=== PATIENT | female | born 1980 | race Caucasian/White ===

== ENCOUNTER 2018-10-16 10:30 | Inpatient (IN) | payer SELFPAY ==
[2018-10-16] MEDS ORDERED: methylPREDNISolone Sod Succ/PF 125 MG/2 ML VIAL ONE (10:50)
--- NOTE | 2018-10-16 12:33 | ULT ---
PELVIC ULTRASOUND: Transabdominal ultrasound pelvis performed. INDICATION: Pelvic abscess. COMPARISON: Correlation is made to CT performed earlier this morning. FINDINGS: Uterus has a normal appearance. Echogenicity in the endometrial cavity is consistent with an IUD whi ch was seen on CT. Right ovary appears unremarkable. Color Doppler with spectral analysis shows flow to the right ovary . There is a complex heterogeneous mass in the left adnexa which is not well delineated by ultrasound b ut measures up to 9 cm. The left ovary is not definitely identified. These findings correspond to t he CT which showed a heterogeneous mass which would be consistent with pelvic abscess in the left adn exa. IMPRESSION: A complex heterogeneous mass density in the left adnexa. POS: OFF
[2018-10-16] MEDS ORDERED: Fentanyl 100 MCG/2 ML VIAL SLOW IVP SCH (13:00)
[2018-10-16] MEDS ORDERED: Sodium Chloride 0.9% 100 ML ONE (13:03)
[2018-10-16] MEDS ORDERED: Fentanyl 100 MCG/2 ML VIAL ONE (13:03)
[2018-10-16] MEDS ORDERED: Piperacillin/Tazobactam 3.375 GM VIAL ONE (13:03)
--- NOTE | 2018-10-16 13:07 | RAD ---
EXAM: Two views chest PROVIDED CLINICAL HISTORY: Shortness of breath. Nausea, vomiting, and diarrhea and left lower quadrant abdominal pain. COMPARISON: None FINDINGS: Cardiac silhouette and pulmonary vasculature are within normal limits. There are increased interstit ial and alveolar opacities seen in the perihilar locations bilaterally which may be related to pulmonary edema or possibly infectious process. No pleural effusion is seen. The osseous structures h ave a normal appearance. IMPRESSION: Increased perihilar interstitial and alveolar opacities which may be related to asymmetric pulmonary edema. Infectious process is also a differential possibility. Follow-up evaluation is recommended to ensure resolution.
[2018-10-16 14:39] LABS: HBCM Index 0.06 S/CO (0-0.79); HBSAg Index 0.23 S/CO (0-0.99); HIV (1/2) Antibody/Antigen Non-Reactive (NonReactive); HIV 1/2 INDEX 0.08 S/CO (<1.00); Hep A IgM AB Non-Reactive (NonReactive); Hep B Surf Ag Non-Reactive S/CO (NonReactive); Hep C IgG Ab Non-Reactive (NonReactive); Hep C Index 0.07 S/CO (0-0.79); Hepatitis B Core IgM Abs Non-Reactive (NonReactive)
[2018-10-16 14:56] VITALS: BMI 25.2
[2018-10-16 15:41] LABS: Amphetamine Not Detected (NotDetected); Barbiturates Screen Not Detected (NotDetected); Benzodiazepine Screen Not Detected (NotDetected); Cocaine Metabolite Screen Not Detected (NotDetected); Medtox Control Line Valid? VALID (VALID); Medtox Reader # READER 1; Methadone Not Detected (NotDetected); Methamphetamine Not Detected (NotDetected); Opiate Screen Not Detected (NotDetected); Oxycodone Screen Not Detected (NotDetected); Phencyclidine (PCP) Not Detected (NotDetected); THC/Cannabinoid Screen Detected (NotDetected); Tricyclic Screen Not Detected (NotDetected)
[2018-10-16] MEDS: NS 0.9% w/ 40 MEQ KCL 1,000 ML IV SCH (16:50)
[2018-10-16] MEDS: Piperacillin/Tazobactam 3.375 GM in Sodium Chloride 0.9% 100 ML IVPB SCH (19:07)
[2018-10-16] MEDS: Potassium Chloride 20 MEQ TAB PO SCH (19:07)
[2018-10-16] MEDS: Fentanyl 100 MCG/2 ML VIAL SLOW IVP PRN ×2 (19:13→22:30)
--- NOTE | 2018-10-16 19:24 | HP ---
CHIEF COMPLAINT: Pelvic pain. HISTORY OF PRESENT ILLNESS: The patient is a 38-year-old female, transferred from the [facility] to [facility] in [place], [place] with a 2-week history of pelvic pain and 1-week history of fever. The patient had a CT scan performed at the outside facility describing several abscesses in the pelvis and transferred here for evaluation. ER physician downstairs performed a pelvic ultrasound demonstrating a large heterogeneous mass involving the left adnexa and measuring 9 x 5 cm and TIME CHECKER consulted for evaluation. At the time of my evaluation, the patient was fairly comfortable, but had noticed that the pain was coming back. The patient had been given 50 mcg of fentanyl at the outside facility. She reports that she has been having pelvic pain now for about 2 weeks that she has been having fever off and on for about the last week. Her last temperature at 101 or above was on Sunday. She has been having temperatures intermittently since then at about 100 and 99. The patient has not had any antibiotics outside her ER evaluation. The reports a long history of GC, chlamydia more than 14 years ago, but nothing since then. She also reports she has not seen a physician in about that long. She denies any other recent illnesses, fever, or fall. She denies chest pain. She does report she has had some shortness of breath and weakness over the last couple of days. She also reports diarrhea yesterday after taking dulcolax suppository and constipation prior to that. She also reports about 2 weeks ago she was diagnosed with gastroenteritis at a local clinic. The patient reports the shortness of breath for some time. Any exertion or running short distances get her very winded. She does report she is able to ambulate through the mall without difficulty. MEDICAL HISTORY: Negative. ALLERGIES: NO KNOWN DRUG ALLERGIES. MEDICATIONS: None. She did receive a dose of Zofran 8 mg, fentanyl 50 mcg, Flagyl 500 mg with the patient reported bad reaction with wheezing and shortness of breath, cefepime 2 g, Toradol 30 mg, and 1 L at the outside facility. SOCIAL HISTORY: The patient denies any drug, alcohol, or tobacco use within the last year. However, in looking at her most recent evaluation at the outside facility, it is reported that she smokes half pack per day. It is also reported by her mother in a separate setting that Ms. Polina weighs daily. PHYSICAL EXAMINATION: VITAL SIGNS: Blood pressure is 100/80, pulse is in the one teens to 120s. She is on 3 L of nasal cannula at my initial visit, saturating 99% on room air. GENERAL: She does not appear to be in any acute distress. She is alert, oriented, cooperative, and pleasant to interact with. She has very poor dentition. HEENT: Head is normocephalic and atraumatic. LUNGS: Clear to auscultation bilaterally. No wheezes, rales, or rhonchi. HEART: A little bit tachycardic, but otherwise normal rhythm. ABDOMEN: Soft. She does have some significant pelvic tenderness. EXTREMITIES: Nontender, nonedematous. PELVIC: Vulva is without masses, lesions, or erythema. Vagina is moist. There is no discharge visible in the cervix. She does have IUD strings visible, which she says has been present for about 15 years. Cervix appears normal with no lesions. The cervical mucus is clear. No pus or purulence visible from the os. With the ring forceps, the IUD was removed without difficulty, which was a ParaGard IUD at the time of inspection. Again, no pus or bleeding visible. On pelvic exam, there was no cervical motion tenderness. The right adnexal region was a little tender, but the patient did not have much discomfort. Posterior to the uterus, where this mass is visible on imaging, is extremely tender as is the left adnexal. LABORATORY DATA: White count 8.7, hemoglobin 11, hematocrit 34.8, platelets 320,000, and neutrophil percentage 85.6. Sodium 135, potassium 2.8, chloride 103, BUN 5, creatinine 0.83, glucose 118, AST of 65, ALT of 90. 2+ proteinuria on her UA with 1+ bacteria, small leukocyte esterase. IMAGING: At the time of exam, the patient required a full-face mask at 10 L to maintain O2 saturation. Chest x-ray shows increased perihilar, interstitial, and alveolar opacities, which may be related to asymmetric pulmonary edema. Infectious process is also differential possibility. Pelvic ultrasound shows a complex heterogeneous mass density in the left adnexa. CT scan shows two large rounded space-occupying structures in the left adnexal region, and posterior to the uterus, it appears to have central fluid present. Abscesses of pelvic origin are suspected. A pelvic ultrasound as the next step to better characterize them is suggested. ASSESSMENT AND PLAN: The patient is a 38-year-old female with a 2-week history of pelvic pain and a week history of fever. Imaging has these pelvic masses that appear to be abscesses. Pelvic exam confirms very significant tenderness in this region. Based on the patient's history, it is possible the patient's infection is being beginning to be contained by the body as the fever intensity and frequency seem to be diminishing per patient report. White count is not significantly elevated at this time, but does have a left shift. Of note, the patient does have hypokalemia with a potassium of 2.8 and needs replacement and some elevated LFTs. The patient is being admitted to observation for continued IV antibiotics, and I have also consulted the hospitalist team to evaluate her lung situation as her shortness of breath is significant requiring oxygen. The patient does have a longstanding history of tobacco use, though she reports has been free of smoking for the last year. GC, chlamydia and VP3 have also been collected. Given the patient's medical evaluation over the next 24 hours, we can better disposition the patient. She may have acute or chronic lung problems and an abscess that may or may not respond to IV antibiotics, though does appear to be perhaps maybe resolving on its own. The patient will be placed on Zosyn 3.375 g per q.6 hours. Job ID: [id number]
--- NOTE | 2018-10-16 20:25 | PDOC.EVN ---
Event Note - Event Note Event Note: 10/16/181999 Spoke with Dr Zepeda this evening. He expressed concern that Ms Fish may be developing ARDS and had been transferred to ICU tonight. I went to seen pt this evening. She reports feeling better at the moment. Vitals virtually unchanged from this morning. BP 93/59 pulse 92 R 18 temp 98.4 99% on 2L NC PT and I have discussed surgery for exploration, I&D and washout if she starts showing worsening signs/symptoms. PT has been thoroughly described the risks and benefits of DX laparoscopy vs laparotomy and procedures as indicated. She has provided written informed consent . Will check on her in a couple hours. hiv and hepatitis panel are neg vp3 neg gc/ct pending drug screen positive for cannibanoids 10/17/18 0027 pt resting right lateral at 30%incline. no complaints vitals 92/62 110 15 98% 2l nc nad
--- NOTE | 2018-10-17 00:09 | CON ---
DATE OF CONSULTATION: PRIMARY CARE PHYSICIAN: The patient does not have a primary care physician. CHIEF COMPLAINT: Left lower abdominal pain. HISTORY OF PRESENT ILLNESS: Ms. Fish is a 38-year-old female, who has no significant prior past medical history, who says that she was having abdominal pain starting about 2 weeks ago. She says it was on the left side. It was radiating around to the back. She says that the pain got so bad that she could not handle it. She also noted that she was having some dyspnea on exertion off and on during this time, but no cough or congestion. She does admit to having subjective fever and chills and some nausea for the past 2 days as well, but due to the worsening pain, she decided to come to the emergency room for evaluation. There it was noted that she had an IUD in place. She admits that the IUD had been in for about 17 years. She was sent over to our facility for evaluation. She says that while she was in the emergency room, she became more short of breath to the point where she was short of breath even at rest. When she was sent over to our facility, the OB hospitalist was called. He has removed the IUD and she is being admitted for further evaluation. Also during the evaluation, she was found to be hypoxic and she has bilateral pulmonary infiltrates and the hospitalist service has been consulted for further evaluation. REVIEW OF SYSTEMS: All systems were reviewed and are negative except for that mentioned in the history of present illness. PAST MEDICAL HISTORY: Negative. PAST SURGICAL HISTORY: Negative. ALLERGIES: NO KNOWN DRUG ALLERGIES. SOCIAL HISTORY: She told me that she does not smoke. She told the OB hospitalist that she quit about a year ago and he told me that the patient's mother brought him outside the room and says that she uses the E-cigarettes and participates in vaping. The patient told me she does not drink. She is . FAMILY HISTORY: Significant for cancer. CURRENT MEDICATIONS: None. PHYSICAL EXAMINATION: GENERAL: She is alert and oriented. She appears to be in no acute distress. However, she is chronically ill in appearance. VITAL SIGNS: Blood pressure is 97/66, heart rate 107, respiratory rate of 18, temperature is 97.9 and O2 saturation is 2 L on nasal cannula. HEENT: Pupils are equal, round, and reactive. Extraocular muscles are intact. Her sclerae are anicteric. Throat, there is no erythema, no exudates. NECK: No adenopathy. No bruits. LUNGS: She has rales all the way through the entire lung martinez in both lobes. CARDIOVASCULAR: She has a normal S1, S2. There is no S3 or S4. However, her heart rate is tachycardic. ABDOMEN: Soft, it is nontender and nondistended. Positive for bowel sounds. There is no rebound or guarding. No organomegaly. EXTREMITIES: There is no clubbing, cyanosis. No edema. NEUROLOGIC: The exam is nonfocal. SKIN AND INTEGUMENT: No skin changes, no rash. LABORATORY DATA: White blood cell count is 8.7, hemoglobin 11.0, hematocrit is 34.8, and platelet count is 320. Sodium 135, potassium 2.8, chloride is 103, CO2 is 19, BUN of 5, creatinine 0.83, glucose is 118. Urine drug screen was positive for cannabinoids. ASSESSMENT: This is a 38-year-old female, who is being admitted for possible pelvic abscess, likely as a result of a retained intrauterine device. She is being admitted by the OB service and has already been started on IV antibiotics for this. 1. Acute respiratory failure. She has bilateral pulmonary infiltrates, which is concerning given that she has a fairly high degree of hypoxemia. This could be related to the current infection in the form of a developing acute respiratory distress syndrome. However, her white blood cell count is normal and she does not have any other symptoms of severe sepsis. She also per family history uses E-cigarettes and her urine drug screen is positive for cannabinoids. Therefore there is some suspicion that she could be vaping and has developed a syndrome related to this. For this reason, as a precaution, she is going to be moved to the ICU. I have already spoken to the marketing financial analyst on-call, who has requested this and he plans to see her later today. We will go ahead and continue the current antibiotics and likely will need to add steroids. 2. Hypokalemia. We will go ahead and replace. 3. Possible nutritional deficiency given the low potassium. She may have other nutritional deficiencies and for this reason, we will go ahead and start her on thiamine and folic acid and she will be placed on deep venous thrombosis as well as gastrointestinal prophylaxis. Job ID: [id number]
[2018-10-17] MEDS: Piperacillin/Tazobactam 3.375 GM in Sodium Chloride 0.9% 100 ML IVPB SCH ×5 (00:13→23:46)
[2018-10-17] MEDS: Morphine 2 MG/ML SYRINGE SLOW IVP PRN ×4 (01:25→23:42)
--- NOTE | 2018-10-17 01:50 | CON ---
DATE OF CONSULTATION: HISTORY OF PRESENT ILLNESS: Ms. Fish is a very pleasant 38-year-old female. After her last child 14 years ago, 2 days later, she had a 10-year IUD put in. She says she just forgot about it and has been so busy at work. She had not felt like she needed to do anything with it. About 2 weeks ago, she started having left flank pain. It started migrating to her left lower quadrant. She thought this was her periods starting, but after she had her menstrual period, the pain did not get better and actually started getting worse every day. The pain was unbearable this morning, so she went to the [facility]. Abdomen and pelvis CT showed a large left adnexal abscess extending adjacent to and behind the uterus. She was tachycardic when she presented reviewing the [facility] records. She said she presented hypotensive. The lowest blood pressure I see was one in the 90s. She received IV fluids and her tachycardia and hypotension resolved. She was transferred here. I am told her IUD was removed. Antibiotics have been started. Because of an abnormal chest x-ray and complaints of shortness of breath and hypoxemia, she was moved to the critical care unit. I was consulted to assist in management. PAST MEDICAL HISTORY: Remarkable for restless legs. SOCIAL HISTORY: She is a former tobacco user. She vapes, but does not vape nicotine. She does not vape THC. She has found a flavor that she buys from one of the stores that sell vape products. She says she does that just to keeps her hands busy so she does not start smoking again. She is not a daily drinker. She does not use drugs. REVIEW OF SYSTEMS: Ten-point of review of systems is otherwise negative. FAMILY HISTORY: Negative for lung disease. PHYSICAL EXAMINATION: GENERAL: She is in no distress surprisingly. I was expecting tachypnea after reviewing her radiographs. HEENT: She is afebrile. Heart rates in the 90s now. She is in sinus rhythm. Oximetry is 100% on 2 L. blood pressure is currently 116/80. HEENT: Pupils are equal. Sclerae are anicteric. She has poor dentition. NECK: Supple. No lymphadenopathy. LUNGS: Clear. HEART: Regular rhythm. S1 and S2 are normal. ABDOMEN: Soft and minimally tender in left lower quadrant. EXTREMITIES: Without clubbing, cyanosis, or edema. LABORATORY DATA: White count 8.7, hemoglobin 11.0, platelets 320. Sodium 135, potassium 2.8, chloride 103, bicarb 19, BUN 5, creatinine 0.83, anion gap is 13 , AST 65, ALT is 90, alkaline phosphatase 190, protein is 9.0, globulin is 5.1. IMPRESSION: Pelvic abscess. It is unclear to me if this is related to her IUD , but it seems feasible. Not a typical position for perforated diverticulitis. She has had no history of bladder trauma or uterine trauma that would suggest that she had perforated. She certainly does not have peritoneal findings at this time. Her chest radiograph shows diffuse infiltrates, which I am fairly certain is medical field representative of adult respiratory distress syndrome. She has not been vaping any products that would lead to an abnormal chest radiograph. She says she has not been vaping for the last 2 weeks and she started feeling bad. I suspect her elevated liver enzymes are an inflammatory reaction to her early clinical sepsis. Hopefully, we will see gradual improvement. I have discussed the above with the furniture painter marine extension agent with plans to examine her serially this evening. The radiologist do not feel CT guided tube placement is feasible. Hopefully, she does not clinically deteriorate and that antimicrobial therapy will take care of this, but this is, by my review of the CT, a fairly impressive abscess behind and adjacent to her uterus. CRITICAL CARE TIME: 30 minutes. Job ID: [id number] MTDD
[2018-10-17 04:51] LABS: #Lymphocytes 0.8 thou/uL (1.20-3.40); #Monocytes 0.3 thou/uL (0.11-0.59); #Neutrophils 10.6 thou/uL (1.40-6.50); %Basophils 0.2 % (0.0-1.0); %Lymphocytes 7.1 % (21.0-51.0); %Monocytes 2.4 % (0.0-10.0); %Neutrophils 90.3 % (42.0-75.0); Hemoglobin 9.9 g/dL (12.0-16.0); Mean Corpuscular HGB CONC 33.5 g/dL (32.0-36.0); Mean Corpuscular Volume 86.5 fL (78.0-98.0); Platelet Count 236 thou/uL (130-400); RBC Distribution Width 13.5 % (11.5-14.5); Red Blood Cell (RBC) Count 3.42 mill/uL (4.20-5.40); White Blood Cell (WBC) Count 11.8 thou/uL (4.8-10.8)
[2018-10-17] MEDS: NS 0.9% w/ 40 MEQ KCL 1,000 ML IV SCH ×2 (05:08→12:55)
[2018-10-17 05:09] LABS: ALT (SGPT) 55 U/L (8-55); AST (SGOT) 34 U/L (5-34); Albumin 3.2 g/dL (3.5-5.0); Alkaline Phosphatase 140 U/L (40-150); Anion Gap 10 mmol/L (10-20); BUN (Urea Nitrogen) 6 mg/dL (7.0-18.7); Bilirubin, Total 0.4 mg/dL (0.2-1.2); Calc. Creatinine Clearance 90 mL/min (70-130); Calcium 8.2 mg/dL (7.8-10.44); Carbon Dioxide 17 mmol/L (22-29); Chloride 115 mmol/L (98-107); Estimated GFR-MDRD 85; Globulin 3.8 g/dL (2.4-3.5); Glucose 119 mg/dL (70-105); Potassium 4.4 mmol/L (3.5-5.1); Sodium 138 mmol/L (136-145)
[2018-10-17] MEDS: Morphine 4 MG/ML VIAL SLOW IVP PRN ×2 (08:49→12:20)
[2018-10-17] MEDS: Enoxaparin Sodium 40 MG/0.4 ML SYRINGE SC SCH (08:53)
[2018-10-17] MEDS: Potassium Chloride 20 MEQ TAB PO SCH ×2 (08:55→16:22)
--- NOTE | 2018-10-17 09:41 | PRG ---
DATE OF SERVICE: 10/17/2018 SUBJECTIVE: The patient is a 38-year-old female, admitted for pelvic mass/abscesses and placed on Zosyn. The patient was also noted to be having some hypoxia requiring oxygen supplementation and hospitalist was consulted. Yesterday, the patient was placed in the ICU with concerns that she was developing ARDS. Close observation overnight has demonstrated a stable patient still requiring 2 L of nasal cannula oxygen, but has been stable for the last 24 hours. The patient reports this morning that she is feeling better. Her pain is improving with IV antibiotics and time. She also reports that she feels a little short of breath, but is able to lie supine, which is improvement from yesterday. OBJECTIVE: VITAL SIGNS: Vital signs have been reviewed and are unchanged overnight. She was saturating about 90% on 2 L nasal cannula while asleep when I went into the room, which came up to 97% to 98% once she was woken. Vital signs otherwise remain intact with blood pressure 90s/60s, heart rate in the 100 to one teens, and respiratory rate at 15 to 18. GENERAL: She appears to be in no acute distress. She is alert, oriented, cooperative, and pleasant to interact with. LUNG: The patient has crackles bilaterally. ABDOMEN: Less tender to palpation than yesterday. LABORATORY DATA: Labs repeated this morning shows resolution of her hypokalemia with potassium of 4.4 and sodium of 138. Her elevated LFTs have also resolved spontaneously with AST of 34 and ALT of 55. White count is 11.8, hemoglobin 9.9, hematocrit 29.6, platelets of 236,000, and neutrophils are 90%. ASSESSMENT AND PLAN: The patient is a 38-year-old female with a pelvic mass that likely represents infectious process and abscess. The patient has remained afebrile since her admission and seems to be clinically improving from a pain standpoint. The patient's lungs are still requiring oxygen have been stable. We will defer her pulmonary management to the dry cleaning supervisor. We appreciate his help and we will continue in-house IV antibiotics and observation. Job ID: [id number]
--- NOTE | 2018-10-17 14:32 | PRG ---
DATE OF SERVICE: 10/17/2018 SUBJECTIVE: Noemi Fish does not appear any worse today. OBJECTIVE: VITAL SIGNS: Heart rate is running around 100 to 108, blood pressure is running 96 to 104 systolic, and respiratory rates in the teens. LUNGS: Clear. HEART: Regular rhythm. ABDOMEN: Soft. LABORATORY DATA: Sodium is 138, potassium 4.4, chloride 115, bicarb 17, BUN 6, and creatinine 0.77. IMPRESSION: 1. Pelvic abscess, stable on antimicrobial therapy. This may require intervention at some point. 2. Hyperchloremic acidosis that is iatrogenic and nonclinical issue at this point. PLAN: We will take her off normal saline, switch her to half-normal saline which should gradually correct. We will continue to follow. Job ID: [id number]
[2018-10-17] MEDS: Sodium Chloride 0.45% 1,000 ML IV SCH (16:07)
--- NOTE | 2018-10-17 16:59 | PDOC.HOSPP ---
- Subjective Encounter Date: 10/17/18 Encounter Time: 10:00 Subjective: Ms. iFsh was seen today in follow-up. She says she is less short of breath today, especially when she lay back. She continues to note some discomfort in her back when she takes in a deep breath. - Objective Vital Signs & Weight: Vital Signs (12 hours) Temp Pulse Ox 10/17/18 15:43 97.1 F L 10/17/18 11:00 97.7 F 10/17/18 08:00 99 10/17/18 07:00 97.9 F Weight Admit Weight 125 lb Weight 125 lb Most Recent Monitor Data Heart Rate from ECG 114 NIBP 89/61 NIBP BP-Mean 70 Respiration from ECG 22 SpO2 96 I&O: 10/16/18 10/17/18 10/18/18 06:59 06:59 06:59 Intake Total 1403 1042 Output Total 550 650 Balance 853 392 Result Diagrams: 10/17/18 04:32 10/17/18 04:32 Hospitalist ROS - Medication Medications: Active Medications Generic Name Dose Route Start Last Admin Trade Name Freq PRN Reason Stop Dose Admin Enoxaparin Sodium 40 mg 10/17/18 09:00 10/17/18 08:53 Lovenox SC 40 mg 0900 SUN Administration Fentanyl 50 mcg 10/16/18 19:06 10/16/18 22:30 Sublimaze SLOW IVP 50 mcg Q2H PRN Administration Pain Piperacillin Sod/Tazobactam 100 mls @ 200 mls/hr 10/16/18 18:00 10/17/18 12: 29 Sod 3.375 gm/ Sodium Chloride IVPB 100 mls Q6HR SUN Administration Sodium Chloride 1,000 mls @ 75 mls/hr 10/17/18 14:00 10/17/18 16:07 1/2 Normal Saline IV 1,000 mls .[id number] SUN Administration Morphine Sulfate 2 mg 10/16/18 19:29 10/17/18 05:35 Morphine SLOW IVP 2 mg Q4H PRN Administration Moderate Pain (4-6) Morphine Sulfate 4 mg 10/16/18 19:29 10/17/18 12:20 Morphine SLOW IVP 4 mg Q4H PRN Administration Moderate to Severe Pain (6-10) Potassium Chloride 40 meq 10/16/18 17:00 10/17/18 16:22 K-Dur PO Not Given BID-WM SUN - Exam Eye: PERRL, anicteric sclera Heart: RRR, no murmur, no gallops, no rubs, normal peripheral pulses Respiratory: no ronchi, normal chest expansion, rales (fine rales bilaterally, improved from yesterday) Gastrointestinal: soft, non-tender, non-distended, normal bowel sounds, no palpable masses, no hepatomegaly Extremities: no cyanosis, no clubbing, no edema Psychiatric: normal affect, A&O x 3 Hosp A/P (1) Acute respiratory failure with hypoxia Code(s): J96.01 - ACUTE RESPIRATORY FAILURE WITH HYPOXIA Status: Acute (2) Pelvic abscess Code(s): URY1986 - Status: Acute (3) Normocytic anemia Code(s): D64.9 - ANEMIA, UNSPECIFIED Status: Acute - Plan * Acute hypoxic respiratory failure- improved * Pelvic abscess- will defer OB- Hospitalist for management * Anemia- will check iron studies * Agree with transfer out of the ICU
[2018-10-17] MEDS: Fentanyl 100 MCG/2 ML VIAL SLOW IVP PRN (18:14)
[2018-10-17] MEDS: Ondansetron PF 4 MG/2 ML Vial IVP PRN (18:39)
[2018-10-17] MEDS ORDERED: Ketorolac Tromethamine 30 MG/ML VIAL IVP SCH (19:15)
--- NOTE | 2018-10-17 23:32 | PDOC.EVN ---
Event Note - Event Note Event Note: Patient with more pain this evening. VSS. Discussed proceeding with laparoscopic drainage of abscess and patient agrees to proceed. Surgery scheduled for 9-10am. Consents previously signed with Dr. Palacios. All questions answered. NPO after midnight.
[2018-10-18] MEDS: Morphine 2 MG/ML SYRINGE SLOW IVP PRN ×2 (05:14→12:36)
[2018-10-18] MEDS: Sodium Chloride 0.45% 1,000 ML IV SCH ×2 (05:17→12:32)
[2018-10-18] MEDS: Piperacillin/Tazobactam 3.375 GM in Sodium Chloride 0.9% 100 ML IVPB SCH ×4 (05:19→23:44)
[2018-10-18 06:27] LABS: Iron 12 ug/dL (50-170); Iron Binding Capacity, Total 184 mcg/dL (265-497)
[2018-10-18] MEDS: Fentanyl 100 MCG/2 ML VIAL SLOW IVP PRN ×2 (07:46→14:57)
--- NOTE | 2018-10-18 08:17 | PRG ---
DATE OF SERVICE: 10/18/2018 SUBJECTIVE: The patient is having more pain this morning and seems very anxious. She denies any other complaints at this time, but is very concerned about when her procedure will take place because she is very thirsty. OBJECTIVE: VITAL SIGNS: Temperature 98.4, blood pressure 96/70, pulse 95, respiratory rate 24, and O2 saturation 100% on 2 L nasal cannula. GENERAL: Awake, alert, in no acute distress, but appears anxious. ASSESSMENT AND PLAN: A 38-year-old with a large pelvic abscess, scheduled for laparoscopy this morning with Dr. Palacios. The patient was consented upon admission and agrees to proceed with the surgery. All questions were answered and she has been n.p.o. since midnight. The nurse is here to take her down to preop. Job ID: [id number]
[2018-10-18] MEDS: Potassium Chloride 20 MEQ TAB PO SCH (08:36)
[2018-10-18] MEDS: Enoxaparin Sodium 40 MG/0.4 ML SYRINGE SC SCH (08:37)
[2018-10-18] MEDS ORDERED: Fentanyl 100 MCG/2 ML VIAL ONE ×3 (08:56→11:46)
[2018-10-18] MEDS ORDERED: Bupivacaine HCl 0.5%/Epinephrine 1:200,000/PF 30 ml Vial ONE (09:00)
[2018-10-18] MEDS ORDERED: Piperacillin/Tazobactam 3.375 GM VIAL ONE (09:19)
[2018-10-18] MEDS ORDERED: Sodium Chloride 0.9% 100 ML ONE (09:19)
[2018-10-18] MEDS ORDERED: Albumin 5% 500 ML ONE (10:01)
[2018-10-18] MEDS ORDERED: Morphine 4 MG/ML VIAL ONE (11:14)
[2018-10-18] MEDS ORDERED: Silver Nitrate Application 1 EACH ONE (11:28)
[2018-10-18] MEDS ORDERED: Promethazine HCl 25 MG/ML VIAL ONE (11:55)
[2018-10-18] MEDS ORDERED: Rocuronium Bromide 10 MG/ML (10ML VIAL) ONE (14:35)
[2018-10-18] MEDS ORDERED: PROPOFOL 200 MG/20 ML VIAL ONE (14:35)
[2018-10-18] MEDS ORDERED: Succinylcholine Chloride 20 MG/ML 10 ml SYRINGE FS ONE (14:35)
[2018-10-18] MEDS ORDERED: Glycopyrrolate 0.2 MG/ML 5 ML SYRINGE ONE (14:35)
[2018-10-18] MEDS ORDERED: Lidocaine 1% PF 5 ML VIAL ONE (14:35)
[2018-10-18] MEDS ORDERED: PHENYLEPHRINE-NS 100 MCG/ML 10 ML SYRINGE ONE (14:35)
[2018-10-18] MEDS ORDERED: Ondansetron PF 4 MG/2 ML Vial ONE (14:35)
[2018-10-18] MEDS ORDERED: ePHEDrine 50 MG/ML VIAL ONE (14:35)
[2018-10-18] MEDS ORDERED: Ketorolac Tromethamine 30 MG/ML VIAL IVP SCH (15:00)
--- NOTE | 2018-10-18 15:02 | PDOC.HOSPP ---
- Subjective Encounter Date: 10/18/18 Encounter Time: 15:01 Subjective: Ms. Fish was see today in follow-up of pelvic abscess and difficulty breathing. She is post op from the laparotomy. She is complaining of pain which is not relieved with Morphine. She says the feeling of shortness of breath has improved. - Objective Vital Signs & Weight: Vital Signs (12 hours) Temp Pulse Ox 10/18/18 12:25 94 L 10/18/18 07:52 96 10/18/18 07:22 98.4 F 10/18/18 04:00 97.9 F Weight Admit Weight 125 lb Weight 125 lb 14.4 oz Most Recent Monitor Data Heart Rate from ECG 95 NIBP 100/69 NIBP BP-Mean 79 Respiration from ECG 22 SpO2 93 I&O: 10/17/18 10/18/18 10/19/18 06:59 06:59 06:59 Intake Total 1403 2525 Output Total 550 1130 Balance 853 1395 Result Diagrams: 10/17/18 04:32 10/17/18 04:32 Hospitalist ROS - Medication Medications: Active Medications Generic Name Dose Route Start Last Admin Trade Name Freq PRN Reason Stop Dose Admin Enoxaparin Sodium 40 mg 10/17/18 09:00 10/18/18 08:37 Lovenox SC Not Given 899 SUN Fentanyl 50 mcg 10/16/18 19:06 10/18/18 14:57 Sublimaze SLOW IVP 50 mcg Q2H PRN Administration Pain Piperacillin Sod/Tazobactam 100 mls @ 200 mls/hr 10/16/18 18:00 10/18/18 12: 32 Sod 3.375 gm/ Sodium Chloride IVPB 100 mls Q6HR SUN Administration Sodium Chloride 1,000 mls @ 75 mls/hr 10/17/18 14:00 10/18/18 12:32 1/2 Normal Saline IV 1,000 mls .[id number] SUN Administration Morphine Sulfate 2 mg 10/16/18 19:29 10/18/18 12:36 Morphine SLOW IVP 2 mg Q4H PRN Administration Moderate Pain (4-6) Morphine Sulfate 4 mg 10/16/18 19:29 10/17/18 12:20 Morphine SLOW IVP 4 mg Q4H PRN Administration Moderate to Severe Pain (6-10) Ondansetron HCl 4 mg 10/16/18 14:30 10/17/18 18:39 Zofran IVP 4 mg Q6H PRN Administration Nausea/Vomiting Potassium Chloride 40 meq 10/16/18 17:00 10/18/18 08:36 K-Dur PO Not Given BID-WM SUN - Exam Eye: PERRL Heart: RRR, no murmur, no gallops, no rubs, normal peripheral pulses Respiratory: CTAB (with the exception of an occasional rhonchi) Gastrointestinal: soft, non-distended, normal bowel sounds, no palpable masses, no hepatomegaly, no splenomegaly, tender to palpation (+ diffuse tenderness, no rebound or guarding) Extremities: no cyanosis, no clubbing, no edema Hosp A/P (1) Acute respiratory failure with hypoxia Code(s): J96.01 - ACUTE RESPIRATORY FAILURE WITH HYPOXIA Status: Acute (2) Pelvic abscess Code(s): ZGO1003 - Status: Acute (3) Normocytic anemia Code(s): D64.9 - ANEMIA, UNSPECIFIED Status: Acute - Plan * Acute hypoxic respiratory failure- continues to improve- etiology uncertain * Pelvic abscess- She is s/p laparotomy- continue IV antibiotics, and symptom management * Anemia- most consistent with anemia of chronic disease- with some iron deficiency- consider iron supplementation once she is taking p.o.
[2018-10-18] MEDS ORDERED: traMADol HCl 50 MG TAB PO PRN (15:20)
[2018-10-18] MEDS ORDERED: Furosemide 20 MG/2 ML VIAL SLOW IVP SCH (15:45)
[2018-10-18] MEDS: Ketorolac Tromethamine 30 MG/ML VIAL IVP SCH ×2 (16:07→23:44)
--- NOTE | 2018-10-18 16:08 | PRG ---
DATE OF SERVICE: 10/18/2018 SERVICE: Pulmonary Medicine. INTERVAL HISTORY: The patient is doing fine from respiratory standpoint. She is breathing comfortably. She denies any nausea, vomiting, fevers, or chills. She indicates that she got short of breath whenever they gave her 3 L of fluid in the emergency department. Since then, she has been on oxygen. She does not feel short of breath currently. PHYSICAL EXAMINATION: VITAL SIGNS: Afebrile, pulse 94, blood pressure 102/72, respirations 20, saturation 99%, currently on room air. GENERAL: The patient is awake and alert, in no apparent distress. LUNGS: Wonderful air entry. Dependent crackles are present in bilateral lung martinez. It is a touch more pronounced on the right. HEART: Normal rate. Regular. ABDOMEN: Soft, nontender, and nondistended. Bowel sounds are positive. MUSCULOSKELETAL: No cyanosis or clubbing. There is no pitting in the bilateral lower extremities. NEUROLOGIC: Grossly nonfocal. LABORATORY DATA: WBC 11.8, hemoglobin 9.9, platelets 236,000. Chloride 115. Basic metabolic profile is otherwise unremarkable. Iron is low. Liver function studies were previously unremarkable. Cannabinoids are positive on the urine drug screen. Otherwise, hepatitis A, B, and C and HIV are nonreactive. ASSESSMENT: 1. Acute hypoxic respiratory failure, resolved. 2. Severe sepsis secondary to tubo-ovarian abscess, status post drainage. 3. Iron deficiency anemia. DISCUSSION AND PLAN: This patient is stable for transition out of the IMCU to the medical unit. She has had definitive therapy for this lesion. At this point, she has no further requirements for inpatient Pulmonary or Critical Care opinion. She is a touch volume up. As such, I will interrupt her IV fluids. I will wean away the oxygen as tolerated. If she has increasing requirements for respiratory support, please notify me. Job ID: [id number]
[2018-10-18 16:25] LABS: Anion Gap 13 mmol/L (10-20); BUN (Urea Nitrogen) 8 mg/dL (7.0-18.7); Calc. Creatinine Clearance 88 mL/min (70-130); Calcium 7.8 mg/dL (7.8-10.44); Carbon Dioxide 15 mmol/L (22-29); Chloride 110 mmol/L (98-107); Estimated GFR-MDRD 81; Glucose 109 mg/dL (70-105); Potassium 3.8 mmol/L (3.5-5.1); Sodium 134 mmol/L (136-145)
--- NOTE | 2018-10-18 22:48 | OP ---
DATE OF PROCEDURE: 10/18/2018 PREOPERATIVE DIAGNOSES: 1. Pelvic mass. 2. Pelvic pain. 3. Suspected pelvic abscess. POSTOPERATIVE DIAGNOSES: 1. Left tubo-ovarian abscess. 2. Bilateral tubal disease. 3. Dense and filmy adhesions. PROCEDURES PERFORMED: Diagnostic laparoscopy with incision and drainage of tubo-ovarian abscess. ANESTHESIA: General. CONSTRUCTION PROJECT COORDINATOR: AALIYAH Khan Junior. ESTIMATED BLOOD LOSS: Less than 25 mL. SPECIMENS: Pelvic washings after drainage of the abscess sent for culture. COMPLICATIONS: None COUNTS: Correct. FINDINGS: Left tubo-ovarian mass adhered to the left pelvic sidewall, filmy and mildly dense adhesions between the sigmoid colon and the back of the uterus, hyperemia of the uterus and colon in the posterior cul-de-sac. Left and right ovaries both adhesed to the ovarian fossa. Clubbed tubes bilaterally, unhealthy and swollen appearing liver. DESCRIPTION OF PROCEDURE: Ms. Fish is a 38-year-old female, who was taken to the operating room for a suspected pelvic abscess. The patient was counseled to the risks and benefits of the procedure with plans to evaluate and drain this abscess versus removal of organ structures. The patient was aware of potential complications including the risk for conversion to a laparotomy and removal of tubes, ovaries and uterus and other procedures as indicated. After obtaining a written informed consent, the patient was taken to the operating room. She was placed in dorsal supine position and the patient was then placed under general anesthesia without difficulty. She was then placed in dorsal lithotomy position in Porter stirrups, prepared and draped in normal sterile fashion. Attention was placed vaginally, where the cervix was identified and grasped with a single-tooth tenaculum. A uterine manipulator was then inserted into the uterine cavity after the uterus was sounded to approximately 10 cm. The attention was then placed abdominally. A 5 mm skin incision was made in the base of the umbilicus. A 10 to 15 mm incision was made suprapubically. A 5 mm incision was made to the left lateral abdomen. The abdomen was then insufflated with CO2 gas to 15 mmHg. A 5 mm port with trocar was then placed abdominally through the umbilical incision and confirmed by the laparoscope. Upon entry into the belly, the patient was noted to have a lot of clear serous fluid in the pelvic region. The omentum appeared to be normal as the visible organ structures. Upon removal of the uterus and bowel to the pelvic field, the uterus from the anterior surface appeared to be normal with elevation of the uterus that was very visible. The left adnexa had been walled off into a fairly large tubo-ovarian abscess that had spread and walled into the left pelvic sidewall. Both the tube and the ovary were involved and unable to clearly be identified initially. The right tube was also visible and diseased with significant clubbing. The right ovary was sucked and adhesed to the right ovarian fossa. The sigmoid colon posterior to the uterus was adhesed to the posterior aspect of the uterus. Both uterus and portion of bowel appeared to be very hyperemic. Additional port was then placed under direct visualization in the left lateral abdomen, and a blunt probe was then introduced. The probe was used in addition to elevating the uterus with the uterine manipulators to bluntly dissect the lower portion of the sigmoid colon from the back of the uterus. This allowed us to more easily inspect the posterior cul-de-sac. In further inspection, this left ovarian adnexal complex looked to take much of the left pelvis. The ovary was visible. An incision was made with the LigaSure device into this complex from posterior to behind the uterus and proximate to the visible portion of the ovary. Upon entry medially becoming visible was the significant amount of pus draining from this site. The area was thoroughly irrigated and the defect was further enlarged with additional sharp dissection. The cavity was then further irrigated with a total of 5 L of normal saline into the abdomen and pelvis. Upon completion of this thorough irrigation, the left tubo-ovarian abscess was inspected and found to be drained and hemostatic. The procedure at this point was then completed and the abdomen was deflated. The skin incisions were then closed. The suprapubic fascia was closed with a single stitch of 0 Vicryl on a UR-6. The skin sites were closed with 4-0 Monocryl. The patient was then extubated and taken to recovery room in stable condition. Job ID: [id number]
[2018-10-19 04:45] LABS: Hemoglobin 8.3 g/dL (12.0-16.0)
[2018-10-19] MEDS: Piperacillin/Tazobactam 3.375 GM in Sodium Chloride 0.9% 100 ML IVPB SCH ×4 (05:37→23:54)
[2018-10-19] MEDS: Ketorolac Tromethamine 30 MG/ML VIAL IVP SCH ×2 (05:37→11:41)
[2018-10-19] MEDS: Enoxaparin Sodium 40 MG/0.4 ML SYRINGE SC SCH (09:10)
--- NOTE | 2018-10-19 09:54 | PRG ---
DATE OF SERVICE: 10/19/2018 SUBJECTIVE: The patient is a 38-year-old female, hospital day 4, admitted for a tubo-ovarian abscess and pelvic pain. The patient had diagnostic laparoscopy with I and D of this left tubo-ovarian abscess yesterday. Belly was irrigated with 5 L of fluid and was otherwise uncomplicated. Today, the patient reports that her pain has all but resolved and is feeling a lot better. She does report she has been having a little bit of back pain from muscle spasms. OBJECTIVE: VITAL SIGNS: This morning, the blood pressure 97/65, temperature 98.2, pulse of 89, respiratory rate of 16, and saturating 94% on room air. GENERAL: She appears to be in no acute distress. She is alert, oriented, cooperative, and pleasant to interact with. HEENT: Head is normocephalic atraumatic. ABDOMEN: Appropriately tender. Incisions are clean, dry, and intact with some bruising. LABORATORY DATA: Her hemoglobin this morning is 8.3 and hematocrit 24.5, down from 9.9 and 29.6 on admission. ASSESSMENT AND PLAN: The patient is a 38-year-old female, who has been on IV Zosyn now for 3 days, going on her 4th day. She is off oxygen. Her pain is improved since surgery. The patient has remained afebrile throughout her entire stay. Her drop in hemoglobin this morning, I believe, is a result of her 5 L used for irrigation washout in her abdomen and may be a delusional effect as she had negligible blood loss at time of the surgery and had been given ample time for evidence of bleeding. We will be repeating her CBC this afternoon at 12. The question at this point is at what point can the patient be discharged home. She has not shown any worsening signs of infection and with her TOA now drained and completely irrigated and opened up. Remainder of her recovery should be accelerated. Plan at this point would be to continue the Zosyn throughout the day and discharge home this afternoon, should everything continue to be okay. The patient will have follow up with [facility] in 2 weeks for an incision check. We will be checking on the patient to Dr. Nguyen, the oncoming physician, who can make that determination this afternoon. She does have prescriptions on the chart; tramadol 50 mg #12, ibuprofen 800 mg #20, Flagyl 500 mg t.i.d. for 7 days, and doxycycline 100 mg p.o. b.i.d. for the next week. Job ID: [id number]
[2018-10-19] MEDS ORDERED: Furosemide 20 MG/2 ML VIAL SLOW IVP SCH (11:45)
[2018-10-19 12:51] LABS: #Eosinphils 0.1 thou/uL (0.0-0.7); #Lymphocytes 1.1 thou/uL (1.20-3.40); #Monocytes 0.3 thou/uL (0.11-0.59); #Neutrophils 5.9 thou/uL (1.40-6.50); %Basophils 0.4 % (0.0-1.0); %Eosinophils 1.2 % (0.0-10.0); %Lymphocytes 14.9 % (21.0-51.0); %Monocytes 4.2 % (0.0-10.0); %Neutrophils 79.3 % (42.0-75.0); Hemoglobin 8.7 g/dL (12.0-16.0); Mean Corpuscular HGB CONC 33.9 g/dL (32.0-36.0); Mean Corpuscular Hemoglobin 29.3 pg (27.0-31.0); Mean Corpuscular Volume 86.5 fL (78.0-98.0); Mean Platelet Volume 8.3 fL (7.4-10.4); Platelet Count 225 thou/uL (130-400); Red Blood Cell (RBC) Count 2.97 mill/uL (4.20-5.40); White Blood Cell (WBC) Count 7.5 thou/uL (4.8-10.8)
--- NOTE | 2018-10-19 13:04 | RAD ---
PORTABLE CHEST: Date: 10/19/18 HISTORY: Follow-up. COMPARISON: 10/16/18. FINDINGS: Bilateral infiltrates are less apparent on today's portable exam. IMPRESSION: Improvement in appearance of the chest. POS: OFF
--- NOTE | 2018-10-19 13:33 | PDOC.HOSPP ---
- Subjective Encounter Date: 10/19/18 Encounter Time: 09:00 Subjective: gets sob on minimal exertion no abd pain just a bit of dyscomfort due to lap no nausea or vomiting tolerating oral diet - Objective Vital Signs & Weight: Vital Signs (12 hours) Temp Pulse Resp BP Pulse Ox 10/19/18 12:05 98.1 F 85 14 94/61 94 L 10/19/18 07:30 98.2 F 89 16 97/65 94 L 10/19/18 03:15 98.4 F 95 16 94/62 93 L Weight Admit Weight 125 lb Weight 125 lb Most Recent Monitor Data Heart Rate from ECG 93 NIBP 91/61 NIBP BP-Mean 71 Respiration from ECG 22 SpO2 94 I&O: 10/18/18 10/19/18 10/20/18 06:59 06:59 06:59 Intake Total 2525 1369 Output Total 1130 375 Balance 1395 994 Result Diagrams: 10/19/18 12:40 10/18/18 15:58 Hospitalist ROS - Medication Medications: Active Medications Generic Name Dose Route Start Last Admin Trade Name Freq PRN Reason Stop Dose Admin Enoxaparin Sodium 40 mg 10/17/18 09:00 10/19/18 09:10 Lovenox SC 40 mg 0900 SUN Administration Furosemide 20 mg 10/19/18 11:45 10/19/18 11:51 Lasix SLOW IVP 10/19/18 13:45 20 mg NOW SUN Administration Piperacillin Sod/Tazobactam 100 mls @ 200 mls/hr 10/16/18 18:00 10/19/18 11: 42 Sod 3.375 gm/ Sodium Chloride IVPB 100 mls Q6HR SUN Administration Morphine Sulfate 2 mg 10/16/18 19:29 10/18/18 12:36 Morphine SLOW IVP 2 mg Q4H PRN Administration Moderate Pain (4-6) Ondansetron HCl 4 mg 10/16/18 14:30 10/17/18 18:39 Zofran IVP 4 mg Q6H PRN Administration Nausea/Vomiting Tramadol HCl 50 mg 10/18/18 15:20 10/18/18 20:29 Ultram PO 50 mg Q4H PRN Administration Moderate Pain (4-6) - Exam General Appearance: NAD, awake alert Eye: PERRL, anicteric sclera ENT: no oropharyngeal lesions, moist mucosa Neck: supple, no JVD Heart: RRR, no murmur Respiratory: no wheezes, rales Gastrointestinal: soft, non-distended, normal bowel sounds Extremities: no cyanosis, no edema Neurological: cranial nerve grossly intact, no focal deficits Psychiatric: normal affect, A&O x 3 Hosp A/P (1) Tubo-ovarian abscess Code(s): N70.93 - SALPINGITIS AND OOPHORITIS, UNSPECIFIED Status: Acute (2) Acute respiratory failure with hypoxia Code(s): J96.01 - ACUTE RESPIRATORY FAILURE WITH HYPOXIA Status: Acute (3) Normocytic anemia Code(s): D64.9 - ANEMIA, UNSPECIFIED Status: Chronic - Plan will give one more dose of lasix today to ambulate well on floor prefer her going home tomorrow if ok with Obgyn gets short winded easily oral iron on dc is on zosyn, toradol/ultram prn hemostable cxr from today reviewed, has clearing up of edema mostly.
[2018-10-19] MEDS ORDERED: Magnesium 2 GM/50 ML 2 GM in Premix Bag 1 BAG IVPB SCH (18:30)
--- NOTE | 2018-10-19 18:40 | PRG ---
DATE OF SERVICE: 10/19/2018 INTERVAL HISTORY: The patient's hemoglobin is climbing up. She denies any fevers or chills overnight. She is not having any shortness of breath, but she is having some pleuritic chest discomfort on the left side. Otherwise, she is returning to her usual state of health. She has some incisional site soreness, but otherwise, she feels that her belly pain is mostly appropriate. She is having mucousy stools. She has had 3 diarrhea bowel movements today. They consist of yellow mucus. OBJECTIVE: VITAL SIGNS: Afebrile, pulse 85, blood pressure 96/60, respirations 16, and saturation 97% on room air. GENERAL: The patient is awake and alert, in no apparent distress. LUNGS: Decent air entry. There is no prolonged expiratory phase. No wheezing or crackles are appreciated. HEART: Normal rate, regular. ABDOMEN: Soft, nontender, nondistended. Bowel sounds are positive. MUSCULOSKELETAL: No cyanosis or clubbing. No pitting in the bilateral lower extremities. NEUROLOGIC: Grossly nonfocal. LABORATORY DATA: WBC 7.5, hemoglobin 8.7, platelets 225,000. Sodium 134. Basic metabolic profile is otherwise unremarkable. Anion gap is gently uptrending, bicarb 15. Magnesium 1.6. IMAGING DATA: Chest x-ray demonstrates improving edema of the bilateral lung martinez. I certainly do not see any obvious pleural effusion in the bilateral lung martinez. ASSESSMENT: 1. Acute hypoxic respiratory failure, resolved. 2. Severe sepsis secondary to tubo-ovarian abscess, status post drainage. 3. Anemia. DISCUSSION AND PLAN: The patient is doing fine from respiratory standpoint. I will replace magnesium. We are going to interrupt Lasix therapy. IV fluids will be interrupted. She is tolerating p.o. Overall, the patient has made significant recovery. She has no further requirements for inpatient Pulmonary/Critical Care opinion, and I will sign off. Please call with additional questions or concerns through time. Job ID: [id number]
[2018-10-19] MEDS: traMADol HCl 50 MG TAB PO PRN ×2 (20:04→23:53)
[2018-10-20 03:55] VITALS: TEMP 97.8
[2018-10-20 04:49] LABS: Lactic Acid 0.8 mmol/L (0.5-2.2)
[2018-10-20 04:53] LABS: Anion Gap 11 mmol/L (10-20); BUN (Urea Nitrogen) 7 mg/dL (7.0-18.7); Calc. Creatinine Clearance 94 mL/min (70-130); Calcium 7.8 mg/dL (7.8-10.44); Carbon Dioxide 18 mmol/L (22-29); Chloride 108 mmol/L (98-107); Estimated GFR-MDRD 89; Glucose 114 mg/dL (70-105); Sodium 134 mmol/L (136-145)
[2018-10-20 04:56] LABS: Potassium 2.9 mmol/L (3.5-5.1)
[2018-10-20] MEDS ORDERED: Potassium Chloride 20 MEQ TAB PO SCH ×2 (05:15→12:15)
[2018-10-20] MEDS ORDERED: Potassium Chloride 20 MEQ in Premix Bag 1 BAG IVPB SCH (05:15)
[2018-10-20] MEDS: traMADol HCl 50 MG TAB PO PRN (05:52)
[2018-10-20] MEDS: Piperacillin/Tazobactam 3.375 GM in Sodium Chloride 0.9% 100 ML IVPB SCH ×2 (05:54→12:19)
--- NOTE | 2018-10-20 07:17 | PRG ---
DATE OF SERVICE: TIME OF SERVICE: 0636 hours. SUBJECTIVE: The patient is resting comfortably. However, upon arousing, she reports that she continues to have persistent left lower quadrant pain. She denies nausea or vomiting. She is tolerating p.o. OBJECTIVE: VITAL SIGNS: Temperature 97.8, pulse 90, respirations 16, blood pressure 104/74, and T-max 98.4. GENERAL: White female, resting comfortably. LUNGS: Clear to auscultation bilaterally. HEART: Regular rhythm. ABDOMEN: Soft. She has tenderness to palpation in the left lower quadrant. Incisions are intact and dry. EXTREMITIES: No clubbing, cyanosis, or edema. LABORATORY DATA: Hematocrit was 25.6 later on the , which was stable from earlier in the day postoperatively. White count 7.5, slight left shift, improved. Microbiology still has no growth. IMPRESSION: Status post tubo-ovarian abscess with laparoscopic drainage, on antibiotics now for 4 days. PLAN: We will continue antibiotics today. The patient does not have insurance funding, so we will have Social Work see patient on Sunday and arrange for outpatient antibiotic provision. We will continue antibiotics for approximately 2 weeks total. Anticipate discharge home, Sunday, 10/21. Job ID: [id number]
[2018-10-20] MEDS: Ondansetron PF 4 MG/2 ML Vial IVP PRN (08:10)
[2018-10-20] MEDS: Enoxaparin Sodium 40 MG/0.4 ML SYRINGE SC SCH (08:10)
[2018-10-20 08:42] VITALS: BP 95/66
--- NOTE | 2018-10-20 12:15 | PDOC.HOSPP ---
- Subjective Encounter Date: 10/20/18 Encounter Time: 09:30 Subjective: no sob, is off oxygen, ambulating in hallway abd pain is minimal this am no nausea or vomiting overall feels better - Objective Vital Signs & Weight: Vital Signs (12 hours) Temp Pulse Resp BP Pulse Ox 10/20/18 08:00 97.8 F 82 20 95/66 97 10/20/18 03:55 97.8 F 90 16 104/74 92 L Weight Admit Weight 125 lb Weight 138 lb 11.2 oz Most Recent Monitor Data Heart Rate from ECG 93 NIBP 91/61 NIBP BP-Mean 71 Respiration from ECG 22 SpO2 94 I&O: 10/19/18 10/20/18 10/21/18 06:59 06:59 06:59 Intake Total 1369 1790 Output Total 375 0 Balance 994 1790 Result Diagrams: 10/19/18 12:40 10/20/18 04:03 Hospitalist ROS - Medication Medications: Active Medications Generic Name Dose Route Start Last Admin Trade Name Freq PRN Reason Stop Dose Admin Enoxaparin Sodium 40 mg 10/17/18 09:00 10/20/18 08:10 Lovenox SC 40 mg 0900 SUN Administration Piperacillin Sod/Tazobactam 100 mls @ 200 mls/hr 10/16/18 18:00 10/20/18 05: 54 Sod 3.375 gm/ Sodium Chloride IVPB 100 mls Q6HR SUN Administration Morphine Sulfate 2 mg 10/16/18 19:29 10/18/18 12:36 Morphine SLOW IVP 2 mg Q4H PRN Administration Moderate Pain (4-6) Ondansetron HCl 4 mg 10/16/18 14:30 10/20/18 08:10 Zofran IVP 4 mg Q6H PRN Administration Nausea/Vomiting Tramadol HCl 50 mg 10/18/18 15:20 10/18/18 20:29 Ultram PO 50 mg Q4H PRN Administration Moderate Pain (4-6) Tramadol HCl 100 mg 10/18/18 15:20 10/20/18 05:52 Ultram PO 100 mg Q4H PRN Administration Severe Pain (7-10) - Exam General Appearance: NAD, awake alert Eye: PERRL, anicteric sclera ENT: no oropharyngeal lesions, moist mucosa Neck: supple, no JVD Heart: RRR, no murmur Respiratory: no wheezes, no rales Gastrointestinal: soft, non-distended, normal bowel sounds Extremities: no cyanosis, no edema Neurological: cranial nerve grossly intact, no focal deficits Psychiatric: normal affect, A&O x 3 Hosp A/P (1) Tubo-ovarian abscess Code(s): N70.93 - SALPINGITIS AND OOPHORITIS, UNSPECIFIED Status: Acute (2) Acute respiratory failure with hypoxia Code(s): J96.01 - ACUTE RESPIRATORY FAILURE WITH HYPOXIA Status: Resolved (3) Normocytic anemia Code(s): D64.9 - ANEMIA, UNSPECIFIED Status: Chronic - Plan lungs are clear to auscultation and pt is off oxygen with normal spo2. is ambulating well on floor d/w (Obgyn), is medically clear for dc, her outpt meds should cost around 30$ oral iron on dc is on zosyn, toradol/ultram here, to start doxy, flagy and ultram prn as outpt. hemostable will sign off, recal if you need us.
[2018-10-20 20:40] LABS: Chlamydia by PCR Inconclusive (NotDetected); GC by PCR Inconclusive (NotDetected)
--- NOTE | 2018-10-21 11:00 | DIS ---
DATE OF ADMISSION: 10/16/2018 DATE OF DISCHARGE: 10/20/2018 DIAGNOSES: 1. Left tubo-ovarian abscess. 2. Acute hypoxic respiratory failure. 3. Severe sepsis secondary to tubo-ovarian abscess. 4. Iron-deficiency anemia. 5. Hypokalemia. PROCEDURES: 1. Pelvic ultrasound. 2. CT scan. 3. Diagnostic laparoscopy with incision and drainage of tubo-ovarian abscess. HOSPITAL COURSE: The patient was admitted on 10/16, with a 2 week history of abdominal pain as well as 1-week history of fever. A CT scan was performed at an outside facility describing several abscesses in the pelvis, and she was transferred to [facility] and admitted for suspected tubo-ovarian abscess. She was placed on Zosyn for antibiotics. She developed acute hypoxic respiratory failure and was transferred to the ICU for closer monitoring. She was placed on oxygen at that time. During her hospital stay, she was also treated for hypokalemia. After two days of antibiotic therapy, she was taken to the operating room for incision and drainage of her tubo-ovarian abscess. Her respiratory and pain symptoms improved and she was discharged home on postop day 2. She was discharged to home after being cleared by the hospitalist. DIET: Regular. ACTIVITIES: No heavy lifting and pelvic rest until her followup appointment. FOLLOWUP: At [facility]. DISCHARGE MEDICATIONS: 1. Tramadol. 2. Doxycycline 100 mg b.i.d. for seven days. 3. Flagyl 500 mg p.o. t.i.d. for seven days. 4. Ibuprofen. INSTRUCTIONS: Call or return to the hospital with significant fever, signs of infection around her incisions, or other concerns. Job ID: [id number] MTDD
--- NOTE | 2018-10-22 02:48 | PQF ---
AVANI PALACIOS MD CLINICAL DOCUMENTATION CLARIFICATION FORM: POST DISCHARGE Addendum to original discharge summary date: ____ Late entry note date: __ DATE: 10/31/18 ATTN: Dr. Saez Please exercise your independent, professional judgment in responding to the clarification form. Clinical indicators are provided on the bottom of this form for your review Kindly clarify regarding ruled in/ruled out sepsis Please check appropriate box(s) to clarify if the following diagnosis has been ruled in or ruled out: Sepsis [ ] Ruled in diagnosis [ ] Continue to treat [ ] Resolved [ ] Ruled out diagnosis [ ] Cannot rule out diagnosis [ ] Other diagnosis [ ] Unable to determine In addition, please specify: Present on Admission (POA): [ ] Yes [ ] No [ ] Unable to determine For continuity of documentation, please document condition throughout progress notes and discharge summary. Thank You. CLINICAL INDICATORS - SIGNS / SYMPTOMS / LABS Severe sepsis secondary to tubo-ovarian abscess, status post drainage - PN dated 10/18 by Christopher Saez Acute respiratory failure, this could be related to the current infection in the form of a developing acute respiratory distress syndrome Pelvic abscess, white count not significantly elevated at thsi time, but does have a left shift- H and P, page no. 3 RISK FACTORS Tubo-ovarian abscess - hospitalist PN dated 10/[address] Addison Acute respiratory failure with hypoxia - hospitalist PN dated 10/[address] Addison TREATMENTS I and D of tubo-ovarian abscess dated 10/[address] Palacios Continue IV antibiotics - Hospitalist PN dated 10/[address] Pacheco (This form is maintained as a part of the permanent medical record) 2014 [employer] All Rights Reserved Vladimir [email or web address] [phone] [facility]
== END 2018-10-20 13:46 | disposition home or self-care (01) | DRG 853 ==
LOC: ERS 10:30 → OBSVTOIN 12:45 → ERHOLD 12:45 → ONC 14:36 → CCU 18:50 → IMCU/EMU 10-17 14:14 → SURG A 10-18 20:41
PROVIDERS: ADMIT Obstetrics & Gynecology; ATTEND Obstetrics & Gynecology
PROC: 0U964ZZ Drainage of Left Fallopian Tube, Percutaneous Endoscopic Approach (ICD-10-PCS; principal; 2018-10-18)
PROC: 0U914ZZ Drainage of Left Ovary, Percutaneous Endoscopic Approach (ICD-10-PCS; 2018-10-18)
DX: A41.9 Sepsis, unspecified organism (principal); J96.01 Acute respiratory failure with hypoxia; E87.2 Acidosis; N70.93 Salpingitis and oophoritis, unspecified; R65.20 Severe sepsis without septic shock; E87.6 Hypokalemia; D63.8 Anemia in other chronic diseases classified elsewhere; D50.9 Iron deficiency anemia, unspecified; N73.6 Female pelvic peritoneal adhesions (postinfective); Z87.891 Personal history of nicotine dependence
CPT/HCPCS: 36415; 71045; 71046; 76856; 80048; 80053; 80074; 80306; 82728; 83540; 83550; 83605; 83735; 85014; 85018; 85025; 87070; 87076; 87205; 87389; 87480; 87491; 87510; 87591; 87660; 93976; 94640; 94760; 96365; 96375; J0670; J1650; J1885; J1940; J2001; J2270; J2405; J2543; J2550; J2704; J2930; J3010; J3475; J3480; J3490; P9045

== ENCOUNTER 2018-10-23 18:29 | Emergency (ER) | payer SELFPAY ==
[2018-10-23] MEDS ORDERED: Morphine 4 MG/ML VIAL ONE ×2 (18:51→20:55)
[2018-10-23] MEDS ORDERED: Ondansetron PF 4 MG/2 ML Vial ONE (18:51)
[2018-10-23 19:08] LABS: Bilirubin Negative (Negative); Blood, Urine 2+ (Negative); Clarity Clear (Clear); Glucose, Urine (Dipstick) Normal (Negative); Leukocyte 75 Leu/uL (Negative); Nitrite Negative (Negative); Protein, Urine (Dipstick) Negative (Neg-Trace); Urobilinogen Normal mg/dL (Less than 2)
[2018-10-23 19:16] LABS: Bacteria/HPF 1+ HPF (None Seen)
[2018-10-23 19:21] LABS: #Eosinphils 0.1 thou/uL (0.0-0.7); #Lymphocytes 1.2 thou/uL (1.20-3.40); #Monocytes 0.3 thou/uL (0.11-0.59); #Neutrophils 4.6 thou/uL (1.40-6.50); %Basophils 0.6 % (0.0-1.0); %Eosinophils 0.9 % (0.0-10.0); %Lymphocytes 19.4 % (21.0-51.0); %Monocytes 4.4 % (0.0-10.0); %Neutrophils 74.7 % (42.0-75.0); Hemoglobin 9.7 g/dL (12.0-16.0); Mean Corpuscular HGB CONC 33.1 g/dL (32.0-36.0); Mean Corpuscular Hemoglobin 28.9 pg (27.0-31.0); Mean Corpuscular Volume 87.3 fL (78.0-98.0); Platelet Count 305 thou/uL (130-400); RBC Distribution Width 14.6 % (11.5-14.5); Red Blood Cell (RBC) Count 3.37 mill/uL (4.20-5.40); White Blood Cell (WBC) Count 6.1 thou/uL (4.8-10.8)
[2018-10-23 19:37] LABS: ALT (SGPT) 18 U/L (8-55); AST (SGOT) 14 U/L (5-34); Albumin 3.4 g/dL (3.5-5.0); Alkaline Phosphatase 101 U/L (40-150); Anion Gap 11 mmol/L (10-20); BHCG - Serum Negative (NEGATIVE); BUN (Urea Nitrogen) 7 mg/dL (7.0-18.7); Bilirubin, Total 0.4 mg/dL (0.2-1.2); Calc. Creatinine Clearance 0 mL/min (70-130); Calcium 8.7 mg/dL (7.8-10.44); Carbon Dioxide 22 mmol/L (22-29); Chloride 106 mmol/L (98-107); Estimated GFR-MDRD 85; Globulin 3.8 g/dL (2.4-3.5); Glucose 93 mg/dL (70-105); Lipase 11 U/L (8-78); Potassium 3.5 mmol/L (3.5-5.1); Pregs Control Background? CLEAR/WHITE (CLR/WHITE); Pregs Control Bar Appear? YES (CONTROL BAR); Protein, Total 7.2 g/dL (6.0-8.3); Sodium 135 mmol/L (136-145)
--- NOTE | 2018-10-23 20:06 | CT ---
CT Abdomen Pelvis W Con: 10/23/2018 6:47 PM CLINICAL INFORMATION: Abdominal pain, nausea, vomiting, and diarrhea COMPARISON: 10/16/2018 TECHNIQUE: Multiple contiguous axial images were obtained and a CT of the abdomen and pelvis with IV contrast. C oronal and sagittal reformats were performed. FINDINGS: Lower Chest: Small right pleural effusion with adjacent atelectasis Abdomen: Liver: within normal limits. Bile Ducts: Normal caliber. Gallbladder: No calcified gallstones. Normal caliber wall. Pancreas: within normal limits. Spleen: within normal limits. Adrenals: within normal limits. Kidneys: within normal limits. Pelvis: Reproductive Organs: The right ovary is visualized. The left ovary is not definitely seen. The uterus is unremarkable. Ureters: within normal limits. Bladder: within normal limits. Peritoneum: No free air is seen. Small amount of free fluid is seen adjacent to the liver, gallbladde r, and in the pelvis. Bowel: A few scattered diverticula are seen in the colon. There are 2 well-circumscribed fluid collec tions in the pelvis which appears separate. The largest measures 3.6 cm in greatest dimension and the smallest measures 1.7 cm in greatest dimension. These are smaller than on the prior examination. The IUD has been removed. Stranding changes are seen in the pelvis. Mesentery and Retroperitoneum: No enlarged mesenteric or retroperitoneal lymph nodes. Vessels: Normal. Abdominal Wall: within normal limits. Bones: Within normal limits IMPRESSION: 1. Inflammatory change and 2 fluid collections in the left pelvis. These could represent abscesses fr om prior diverticulitis. This also could represent tubo-ovarian abscesses as these are likely intimately associated with the left ovary. These are not amenable to percutaneous drainage as bowel l oops are surrounding the fluid collections. These fluid collections are smaller than on the prior examination. 2. Right pleural effusion with adjacent atelectasis
== END 2018-10-23 21:17 | disposition home or self-care (01) ==
LOC: ERS 18:29
DX: R10.32 Left lower quadrant pain (principal); Z71.6 Tobacco abuse counseling; Z87.891 Personal history of nicotine dependence; Z79.899 Other long term (current) drug therapy
CPT/HCPCS: 36415; 74177; 80053; 81003; 81015; 83605; 83690; 84703; 85025; 87040; 96361; 96374; 96375; 96376; 99406; J2270; J2405

== ENCOUNTER 2019-05-12 05:36 | Emergency (ER) | payer BC, SELFPAY ==
[2019-05-12] MEDS ORDERED: Ondansetron PF 4 MG/2 ML Vial ONE (05:52)
[2019-05-12] MEDS ORDERED: Morphine 4 MG/ML VIAL ONE (05:52)
[2019-05-12 06:15] LABS: #Basophils 0.1 thou/uL (0.0-0.2); #Eosinphils 0.1 thou/uL (0.0-0.7); #Lymphocytes 0.9 thou/uL (1.20-3.40); #Monocytes 0.2 thou/uL (0.11-0.59); %Basophils 0.9 % (0.0-1.0); %Lymphocytes 14.6 % (21.0-51.0); %Monocytes 3.8 % (0.0-10.0); %Neutrophils 79.6 % (42.0-75.0); Hemoglobin 13.5 g/dL (12.0-16.0); Mean Corpuscular HGB CONC 33.2 g/dL (32.0-36.0); Mean Corpuscular Hemoglobin 29.1 pg (27.0-31.0); Mean Corpuscular Volume 87.8 fL (78.0-98.0); Mean Platelet Volume 9.3 fL (7.4-10.4); Platelet Count 172 thou/uL (130-400); RBC Distribution Width 13.7 % (11.5-14.5); Red Blood Cell (RBC) Count 4.64 mill/uL (4.20-5.40); White Blood Cell (WBC) Count 6.3 thou/uL (4.8-10.8)
[2019-05-12 06:19] LABS: BHCG - Serum Negative (NEGATIVE); Pregs Control Background? CLEAR/WHITE (CLR/WHITE); Pregs Control Bar Appear? YES (CONTROL BAR)
[2019-05-12 06:39] LABS: ALT (SGPT) 13 U/L (8-55); AST (SGOT) 16 U/L (5-34); Albumin 4.1 g/dL (3.5-5.0); Alkaline Phosphatase 77 U/L (40-110); Anion Gap 11 mmol/L (10-20); BUN (Urea Nitrogen) 12 mg/dL (7.0-18.7); Bilirubin, Total 0.4 mg/dL (0.2-1.2); Calc. Creatinine Clearance 0 mL/min (70-130); Carbon Dioxide 21 mmol/L (22-29); Chloride 107 mmol/L (98-107); Estimated GFR-MDRD 63; Globulin 4.4 g/dL (2.4-3.5); Glucose 96 mg/dL (70-105); Lipase 32 U/L (8-78); Potassium 3.9 mmol/L (3.5-5.1); Protein, Total 8.5 g/dL (6.0-8.3); Sodium 135 mmol/L (136-145)
[2019-05-12 06:42] LABS: Bilirubin Negative (Negative); Blood, Urine Negative (Negative); Clarity Turbid (Clear); Glucose, Urine (Dipstick) Normal (Negative); Leukocyte Negative Leu/uL (Negative); Nitrite Negative (Negative); Protein, Urine (Dipstick) Negative (Neg-Trace); Urobilinogen Normal mg/dL (Less than 2)
[2019-05-12] MEDS ORDERED: HYDROcodone/Acetaminophen 5/325 mg Tablet ONE (07:30)
[2019-05-12] MEDS ORDERED: cefTRIAXone\\ROCEPHIN 1 GM VIAL ONE (07:30)
[2019-05-12] MEDS ORDERED: Sodium Chloride 0.9% 100 ML ONE (07:30)
--- NOTE | 2019-05-12 07:58 | CT ---
CT ABDOMEN AND PELVIS WITH CONTRAST: Date: 05/12/2019 COMPARISON: 10/23/2018 and 10/16/2018. HISTORY: Left-sided flank and abdominal pain that began 3 days ago and is worsening. TECHNIQUE: Multiple contiguous axial images were obtained in a CT of the abdomen and pelvis with contrast. Sagit deb and coronal reformats were performed. FINDINGS: There is a 3.6 cm hypodensity in the left aspect of the pelvis which likely represents a left ovarian follicle. A small amount of free fluid adjacent to this follicle. No free air or stranding changes a re seen in the abdomen or pelvis. The liver, gallbladder, kidneys, adrenal glands, spleen, and pancreas are unremarkable. The large and small bowel are unremarkable. The appendix is normal. No abdominal or pelvic lymphadeno joe seen. The osseous structures, visualized inferior thorax, and abdominal wall soft tissues are unremarkable. IMPRESSION: 1. No evidence of acute intra-abdominal/pelvic abnormality. 2. There is likely a physiologic follicle in the left ovary. However, given the patient's history of a tuboovarian abscess, the abnormality in the left adnexa could also represent a recurrent abscess a nd the fluid adjacent to it could represent an enlarge fallopian tube. Correlate with WBC count and physical exam. ADDENDUM: Comparison is also made to the exam from 10/16/2018. This patient has a history of tubo-ovarian absce ss. The patient's IUD was removed. The cystic structure in the left adnexa could represent physiologi c follicle. Alternatively, this could represent a recurrent tubo-ovarian abscess and the fluid in the left adnexa is slightly tubular in appearance and an enlarged fallopian tube on the left is also a p ossibility. A recurrent tubo-ovarian abscess on the left cannot be entirely excluded. Correlate with white blood cell count and physical examination POS: [facility]
[2019-05-12] MEDS ORDERED: Iopamidol-370 76% 500 ML 1 ML ONE (12:58)
== END 2019-05-12 07:56 | disposition home or self-care (01) ==
LOC: ERS 05:36
DX: R10.2 Pelvic and perineal pain (principal); R10.814 Left lower quadrant abdominal tenderness; Z87.891 Personal history of nicotine dependence
CPT/HCPCS: 74177; 80053; 81003; 83690; 84703; 85025; 96361; 96365; 96375; J0696; J2270; J2405; J3490; Q9967

== ENCOUNTER 2019-05-24 13:33 | Inpatient (IN) | payer BC ==
[2019-05-24 14:06] LABS: #Eosinphils 0.1 thou/uL (0.0-0.7); #Monocytes 0.2 thou/uL (0.11-0.59); #Neutrophils 2.4 thou/uL (1.40-6.50); %Basophils 0.7 % (0.0-1.0); %Eosinophils 1.4 % (0.0-10.0); %Lymphocytes 27.2 % (21.0-51.0); %Monocytes 4.5 % (0.0-10.0); %Neutrophils 66.3 % (42.0-75.0); Hemoglobin 13.1 g/dL (12.0-16.0); Mean Corpuscular HGB CONC 32.8 g/dL (32.0-36.0); Mean Corpuscular Hemoglobin 29.4 pg (27.0-31.0); Mean Corpuscular Volume 89.6 fL (78.0-98.0); Mean Platelet Volume 9.1 fL (7.4-10.4); Platelet Count 171 thou/uL (130-400); RBC Distribution Width 13.7 % (11.5-14.5); Red Blood Cell (RBC) Count 4.44 mill/uL (4.20-5.40); White Blood Cell (WBC) Count 3.6 thou/uL (4.8-10.8)
--- NOTE | 2019-05-24 14:25 | RAD ---
CHEST ONE VIEW PORTABLE: History: Dyspnea. Comparison: 10-09-18 FINDINGS: Heart size is normal. The lungs are clear. No confluent pneumonia, overt edema, or pleural effusion. IMPRESSION: No significant acute intrathoracic disease. Stable from prior study. POS: [facility]
[2019-05-24 14:27] LABS: ALT (SGPT) 11 U/L (8-55); AST (SGOT) 18 U/L (5-34); Albumin 3.9 g/dL (3.5-5.0); Alkaline Phosphatase 67 U/L (40-110); Anion Gap 13 mmol/L (10-20); BUN (Urea Nitrogen) 8 mg/dL (7.0-18.7); Bilirubin, Total 0.5 mg/dL (0.2-1.2); CK (CPK) 44 U/L (29-168); Calc. Creatinine Clearance 0 mL/min (70-130); Calcium 8.7 mg/dL (7.8-10.44); Carbon Dioxide 18 mmol/L (22-29); Chloride 110 mmol/L (98-107); Estimated GFR-MDRD 70; Globulin 4.1 g/dL (2.4-3.5); Glucose 101 mg/dL (70-105); Potassium 3.8 mmol/L (3.5-5.1); Sodium 137 mmol/L (136-145)
[2019-05-24 14:40] LABS: Bilirubin Negative (Negative); Blood, Urine Negative (Negative); Clarity Clear (Clear); Glucose, Urine (Dipstick) Normal (Negative); Leukocyte Negative Leu/uL (Negative); Nitrite Negative (Negative); Protein, Urine (Dipstick) Negative (Neg-Trace); Urobilinogen Normal mg/dL (Less than 2)
[2019-05-24] MEDS ORDERED: Furosemide 40 MG/4 ML VIAL ONE (15:20)
--- NOTE | 2019-05-24 15:34 | PDOC.FPRHP ---
- History of Present Illness Chief Complaint: SOB, elevated BNP History of Present Illness: 38yo F with h/o meth abuse (clean 15 years) presents for shortness of breath. Patient states she was hospitalized in Oct 2018 for Tubovarian abscess and sepsis and spent about a week in the ICU. Since that time she has had progressive dyspnea with exertion. Now unable to walk up a flight of stairs or even get dressed without getting SOB. She has 3 pillow orthopnea, PND up to 3 times per night. Occasional LE edema to ankles at end of day. No acute changes or worsening. No recent illness.No n/v, diaphoresis. Does endorse GERD-like cp, lying flat after meals and at night, buring sensation in throat. No known cardiac history. ED Course: Lasix 40 IV x1. - Allergies/Adverse Reactions Allergies Allergy/AdvReac Type Severity Reaction Status Date / Time No Known Allergies Allergy Verified 10/16/18 14:50 - Home Medications Medication Instructions Recorded Confirmed Type No Known 05/24/19 05/24/19 History - History PMHx: Tuboovarian abscess and sepsis requiring surgery and ICU in Oct 2018 PSHx: Tuboovarian abscess drainage 2018 FHx: Paternal aunt with CAD s/p CABG, PGF CHF and pacemaker, Mom with supply controller cancer , MGF lung cancer. Social: Previous meth use, clean 15 years. Previous 20py smoker, quit 2 years ago, social etoh. - Review of Systems General: denies: fever/chills, weight/appetite/sleep changes, night sweats, fatigue Eyes: denies: vision changes ENT: denies: nasal congestion, rhinorrhea Respiratory: reports: cough (dry, lying flat), shortness of breath, exercise intolerance Cardiovascular: reports: edema, paroxysmal nocturnal dyspnea, orthopnea. denies : chest pain, palpitation Gastrointestinal: denies: nausea, vomiting, diarrhea, constipation, abdominal pain Genitourinary: denies: incontinence, dysuria Skin: denies: rashes Neurological: denies: numbness, syncope - Vital signs BP: 100/70 HR: 68 RR: 14 Tmax: 98.7 Pox: 98% on RA Wt: 58kg - Physical Exam Constitutional: NAD, awake, alert and oriented, well developed, other (able to speak in full sentences) HEENT: PERRLA, EOMI, no scleral icterus, MMM, oropharynx clear, other Neck: supple, no JVD Heart: RRR, normal S1/S2, no murmurs/rubs/gallops, pulses present, no edema Lungs: CTAB, no respiratory distress, good air movement, no rales/rhonchi, no wheezing, other (talking in full sentences without SOB) Abdomen: soft, non-tender, bowel sounds present Musculoskeletal: normal structure, normal tone Neurological: no focal deficit Psychiatric: normal mood and affect, good judgment and insight, intact recent and remote memory FMR H&P: Results - Labs Result Diagrams: 05/24/19 13:58 05/24/19 13:58 Lab results: WBC 3.6 thou/uL (4.8-10.8) L 05/24/19 13:58 Hgb 13.1 g/dL (12.0-16.0) 05/24/19 13:58 Hct 39.8 % (36.0-47.0) 05/24/19 13:58 MCV 89.6 fL (78.0-98.0) 05/24/19 13:58 Plt Count 171 thou/uL (130-400) 05/24/19 13:58 Neutrophils % 66.3 % (42.0-75.0) 05/24/19 13:58 Sodium 137 mmol/L (136-145) 05/24/19 13:58 Potassium 3.8 mmol/L (3.5-5.1) 05/24/19 13:58 Chloride 110 mmol/L (98-107) H 05/24/19 13:58 Carbon Dioxide 18 mmol/L (22-29) L 05/24/19 13:58 BUN 8 mg/dL (7.0-18.7) 05/24/19 13:58 Creatinine 0.91 mg/dL (0.6-1.1) 05/24/19 13:58 Glucose 101 mg/dL (70-105) 05/24/19 13:58 Calcium 8.7 mg/dL (7.8-10.44) 05/24/19 13:58 Total Bilirubin 0.5 mg/dL (0.2-1.2) 05/24/19 13:58 AST 18 U/L (5-34) 05/24/19 13:58 ALT 11 U/L (8-55) 05/24/19 13:58 Alkaline Phosphatase 67 U/L (40-110) 05/24/19 13:58 Creatine Kinase 44 U/L (29-168) 05/24/19 13:58 B-Natriuretic Peptide 901.5 pg/mL (0-100) H 05/24/19 13:58 Serum Total Protein 8.0 g/dL (6.0-8.3) 05/24/19 13:58 Albumin 3.9 g/dL (3.5-5.0) 05/24/19 13:58 Urine Ketones Negative mg/dL (Negative) 05/24/19 14:04 Urine Blood Negative (Negative) 05/24/19 14:04 Urine Nitrite Negative (Negative) 05/24/19 14:04 Ur Leukocyte Esterase Negative Edmund/uL (Negative) 05/24/19 14:04 - EKG Interpretation EKG: As compared to 2019 EKG, new RBBB and T wave inversions in III and V1. No acute ST or T wave changes. Normal R wave progression, normal axis. Normal intervals. Sinus. - Radiology Interpretation Chest x-ray Status: image reviewed by me (no acute process, sharp angles, no consolidation or effusion noted), report reviewed by me FMR H&P: A/P - Problem List (1) New onset of congestive heart failure Current Visit: Yes Status: Suspected Code(s): I50.9 - HEART FAILURE, UNSPECIFIED - Plan 38yo F with h/o meth abuse (clean 15 years) presents for shortness of breath. #Suspected newonset CHF - Sxs since Oct 2018, no acute changes, dyspnea with exertion, orthopnea and PND - BNP 901 - Lytes WNL, VSS and satting well on RA - Euvolemic on exam, no LE edema or s/s of pleural effusions, CXR WNL - s/p 40mg IV lasix in ED x1 - Will order Echo - Risk factors for recent ICU stay and h/o drug abuse - EKG with RBBB and T wave inversions - Trop 0.010, no chest pain or acute change in sxs - Will monitor on tele - Consider stress pending Echo report - will check TSH #H/o Meth abuse - clean 15 years - admits to THC use - prior smoker, 20py, quit 2 years ago - will check UDS PCP: [facility] Code: Full IVF: SL Diet: HH VTE: SCDs Disposition/LOS: Admit to tele obs for suspected newonset CHF. Echo and workup pending. Anticipate LOS < 48hrs. FMR H&P: Upper Level - Pertinent history 38 yo F here following direction to go to the ER for evaluation due to an outpatient pro BNP of 5208 as part of a work up for progressively worsening DOA. She states that DOA started following an ICU stay in Oct due to sepsis secondary to tuboovarian abscess. No cardiac events were noted during that stay. She states that over the past few months DOA has worsened to the point that she cannot walk up a flight of stairs without SOB and lightheadedness. She denies CP, n/v, or diaphoresis. She has no other medical hx. She admits to orthopnea and periodic LE edema. Her past social hx is significant for 7 years of heavy methamphetamine use which was dcd 15 years ago. She also has a 20 pack year smoking hx. She has no known cardiac hx. PMHx - L TOA Surgical Hx laparoscopic I&D of L TOA Social Hx Hx of methamphetamine use, now dcd. Current marijuana use 20 pack year hx, dcd for 2 years Social etoh - Pertinent findings See financial analyst intern note for full ROS, PE, vitals, and labs ROS General Denies fever or chills CV Complains of DOA, periodic LE edema. Denies CP, palpitation, or diaphoresis Resp Complains of SOB and dry cough GI denies n/v/d/c or abdominal pain denies increased frequency or dysuria Neuro denies numbness or weakness PE General A&O x4, NAD HEENT NCAT CV RRR, no murmur Resp CTA, no respiratory distress Abd No distension, non tender Extremities no edema, equal pedal pulses Neuro no focal deficits, CN II-XII intact EKG T wave inversion in III, RBBB - Plan Date/Time: 05/24/19 [id number] Orlando Currie DO, have evaluated this patient and agree with findings/plan as outlined by financial analyst intern resident. Pertinent changes/additions are listed here. 1.Dyspnea on exertion -Concern for CAD vs CHF -Admit to tele obs. Due normal vitals and exam, will not continue Lasix at this time -Echo. Will also consider stress test pending echo -Cards consult pending work up -Check UDS PPx SCD Diet HH Code Full Addendum - Attending - Attending Attestation Date/Time: 05/24/19 2930 I personally evaluated the patient and discussed the management with Dr. Arnold/ Alicia. I agree with the History, Examination, Assessment and Plan documented above with any addition or exceptions noted below.
[2019-05-24] MEDS ORDERED: Ondansetron ODT 4 MG TAB SL PRN (16:16)
[2019-05-24] MEDS ORDERED: Ondansetron PF 4 MG/2 ML Vial IVP PRN (16:16)
[2019-05-24] MEDS ORDERED: Calcium Carbonate 500 MG ChewTAB PO PRN (16:28)
[2019-05-24] MEDS ORDERED: Ondansetron ODT 4 MG TAB PO PRN (16:28)
[2019-05-24 18:10] LABS: Magnesium 1.8 mg/dL (1.6-2.6); Phosphorus 3.2 mg/dL (2.3-4.7)
[2019-05-24 18:20] LABS: Amphetamine Not Detected (NotDetected); Barbiturates Screen Not Detected (NotDetected); Benzodiazepine Screen Not Detected (NotDetected); Cocaine Metabolite Screen Not Detected (NotDetected); Medtox Control Line Valid? VALID (VALID); Medtox Reader # READER 1; Methadone Not Detected (NotDetected); Methamphetamine Not Detected (NotDetected); Opiate Screen Not Detected (NotDetected); Oxycodone Screen Not Detected (NotDetected); Phencyclidine (PCP) Not Detected (NotDetected); THC/Cannabinoid Screen Detected (NotDetected); Tricyclic Screen Not Detected (NotDetected)
[2019-05-24] MEDS: Acetaminophen 325 MG TAB PO PRN (20:12)
[2019-05-24] MEDS: Famotidine 20 MG TAB PO SCH (20:12)
--- NOTE | 2019-05-25 06:56 | PDOC.FM ---
- Subjective Subjective: Ms. Fish was feeling well. Denied difficulty breathing, CP. Toleraitng PO well. Awaiting echo. - Objective Vital Signs & Weight: Vital Signs (12 hours) Temp Pulse Resp BP BP Pulse Ox 05/25/19 03:52 97.8 F 73 12 99/80 96 05/25/19 00:00 98.4 F 70 12 99/72 98 05/24/19 19:19 98.4 F 82 12 92/68 98 Weight Weight 57.238 kg I&O: 05/23/19 05/24/19 05/25/19 06:59 06:59 06:59 Intake Total 240 Output Total 800 Balance -560 Result Diagrams: 05/25/19 08:42 05/25/19 08:42 Phys Exam - Physical Examination Constitutional: NAD Respiratory: clear to auscultation bilateral Cardiovascular: RRR, no significant murmur Gastrointestinal: soft, non-tender Neurological: non-focal Psychiatric: normal affect Skin: normal turgor Dx/Plan - Plan Plan: 38yo F with h/o meth abuse (clean 15 years) presents for shortness of breath. #Suspected new onset CHF - Sxs since Oct 2018, no acute changes, dyspnea with exertion, orthopnea and PND. BNP 901 - Euvolemic on exam, no LE edema or s/s of pleural effusions, CXR WNL - s/p 40mg IV lasix in ED x1 - Echo pending - Risk factors for recent ICU stay and h/o drug abuse - EKG with RBBB and T wave inversions - Consider stress test, cardiology consult pending Echo report #H/o Meth abuse - clean 15 years - admits to THC use - prior smoker, 20py, quit 2 years ago - will check UDS PPx SCD Diet HH Code Full Dispo: pending workup Addendum - Attending - Attending Attestation Date/Time: 05/25/19 1027 I personally evaluated the patient and discussed the management with Dr. Frankel. I agree with the History, Examination, Assessment and Plan documented above with any addition or exceptions noted below. Patient here with suspicion for new onset heart failure, history of meth abuse. Echo pending. She is otherwise doing well. BP controlled and minimal fluid excess.
[2019-05-25 08:54] LABS: #Eosinphils 0.1 thou/uL (0.0-0.7); #Monocytes 0.3 thou/uL (0.11-0.59); #Neutrophils 2.4 thou/uL (1.40-6.50); %Basophils 1.3 % (0.0-1.0); %Lymphocytes 27.2 % (21.0-51.0); %Monocytes 7.8 % (0.0-10.0); %Neutrophils 61.8 % (42.0-75.0); Mean Corpuscular HGB CONC 32.6 g/dL (32.0-36.0); Mean Corpuscular Hemoglobin 28.8 pg (27.0-31.0); Mean Corpuscular Volume 88.3 fL (78.0-98.0); Mean Platelet Volume 9.3 fL (7.4-10.4); Platelet Count 195 thou/uL (130-400); RBC Distribution Width 13.8 % (11.5-14.5); Red Blood Cell (RBC) Count 4.86 mill/uL (4.20-5.40); White Blood Cell (WBC) Count 3.8 thou/uL (4.8-10.8)
[2019-05-25] MEDS: Famotidine 20 MG TAB PO SCH ×2 (09:01→21:08)
[2019-05-25 09:17] LABS: Anion Gap 13 mmol/L (10-20); BUN (Urea Nitrogen) 11 mg/dL (7.0-18.7); Calc. Creatinine Clearance 73 mL/min (70-130); Calcium 9.4 mg/dL (7.8-10.44); Carbon Dioxide 18 mmol/L (22-29); Cardiac Risk 4.9 (Less than 4.5); Chloride 108 mmol/L (98-107); Cholesterol 153 mg/dl (< 200 Desired); Estimated GFR-MDRD 67; Glucose 105 mg/dL (70-105); HDL Cholesterol 31 mg/dL (>60 Neg Risk); LDL Cholesterol, Calculated 107 mg/dL; Potassium 3.8 mmol/L (3.5-5.1); Sodium 135 mmol/L (136-145); Triglycerides 75 mg/dL (Less than 150)
[2019-05-25] MEDS: Acetaminophen 325 MG TAB PO PRN (18:25)
--- NOTE | 2019-05-26 06:28 | PDOC.FM ---
- Subjective Subjective: Patient states she started her period this morning and is having severe abdominal cramping. She says Tylenol is not helping and at home she normally takes Tramadol with menses. Patient has never seen a weight loss consultant in past. - Objective MAR Reviewed: Yes Vital Signs & Weight: Vital Signs (12 hours) Temp Pulse Resp BP Pulse Ox 05/26/19 03:55 98.4 F 68 16 97/70 98 05/25/19 23:56 98.2 F 59 L 16 100/67 98 05/25/19 19:35 98.2 F 80 16 95/73 96 Weight Weight 56.699 kg I&O: 05/24/19 05/25/19 05/26/19 06:59 06:59 06:59 Intake Total 480 520 Output Total 900 325 Balance -420 195 Result Diagrams: 05/25/19 08:42 05/25/19 08:42 Phys Exam - Physical Examination Constitutional: NAD HEENT: moist MMs, sclera anicteric Neck: no JVD, supple, full ROM Respiratory: clear to auscultation bilateral Cardiovascular: RRR grade II diastolic murmur over mitral valve Gastrointestinal: soft, no distention, positive bowel sounds TTP in RLQ Musculoskeletal: no edema, pulses present Neurological: normal sensation, moves all 4 limbs Psychiatric: normal affect, A&O x 3 Skin: no rash, normal turgor Dx/Plan (1) New onset of congestive heart failure Code(s): I50.9 - HEART FAILURE, UNSPECIFIED Status: Suspected (2) History of methamphetamine abuse Code(s): F15.11 - OTHER STIMULANT ABUSE, IN REMISSION Status: Resolved - Plan Plan: 38yo F with h/o meth abuse (clean 15 years) presents for shortness of breath. #Suspected new onset CHF - Sxs since Oct 2018, no acute changes, dyspnea with exertion, orthopnea and PND. BNP 901 on admission. pro-BNP was 5000 on 05/22 per [facility] clinic records - Euvolemic on exam, no LE edema or s/s of pleural effusions, CXR WNL - s/p 40mg IV lasix in ED x1 - ECHO shows EF of 40-50%, rheumatic changes of mitral valve, decreased mitral mobility, mod-severe mitral stenosis, mod MR, mild TR, elevated RV pressure - Risk factors for recent ICU stay and h/o drug abuse - EKG with RBBB and T wave inversions - plan to consult Cardiology this AM--Dr. Lozoya, appreciate recommendations #H/o Meth abuse - clean 15 years - admits to THC use, c/w UDS +marijuana this admission - prior smoker, 20py, quit 2 years ago #Abdominal Cramping -d/t menses, does have hx of tubo-ovarian abscess with cleanout in Dec 2018 -Tylenol prn -laix Naproxen BID VTE: SCD Diet: HH Code status: Full Dispo: Stable, plan to consult Cardiology this AM, appreciate further recs. Anticipate discharge in <48 hours. Addendum - Attending - Attending Attestation Date/Time: 05/26/19 4325 I personally evaluated the patient and discussed the management with Dr. Melissa I agree with the History, Examination, Assessment and Plan documented above with any addition or exceptions noted below. moderate to severe mitral valve disease. Cardiology consulted. Dispo pending recommendations.
[2019-05-26] MEDS: Famotidine 20 MG TAB PO SCH ×2 (07:12→20:28)
[2019-05-26] MEDS: Acetaminophen 325 MG TAB PO PRN (07:13)
[2019-05-26] MEDS ORDERED: Naproxen 500 MG TAB PO SCH (08:00)
[2019-05-26] MEDS: traMADol HCl 50 MG TAB PO PRN ×4 (09:16→23:09)
[2019-05-26] MEDS ORDERED: Furosemide 40 MG/4 ML VIAL SLOW IVP SCH (15:15)
[2019-05-26] MEDS ORDERED: Potassium Chloride 20 MEQ TAB PO SCH (15:15)
[2019-05-26] MEDS ORDERED: Enoxaparin Sodium 30 MG/0.3 ML SYRINGE SC SCH (15:30)
--- NOTE | 2019-05-26 20:59 | CON ---
DATE OF CONSULTATION: 05/26/2019 REASON FOR CONSULTATION: Mitral valve disease and shortness of breath. HISTORY OF PRESENT ILLNESS: Ms. Fish is a very pleasant 38-year-old woman. She was admitted to the hospital with difficulty breathing on Sunday. She received one dose of diuretics and has improved, but is still not back to normal. No chest pain or pressure. The patient states that she was admitted to the hospital with a gynecologic emergency with infection in October of 2018. At that time, the patient was found to have a pelvic mass and subsequently found to have a tubo-ovarian abscess. The patient states that she was very short of breath during that admission, but she never really regained her breathing back to normal subsequently. She said ever since then she has been short of breath an it has been getting worse for the last 6 months. She finally went to see her primary care physician who lenin a BNP that was elevated. She was referred to the emergency room and she was admitted. She received a dose of intravenous Lasix. She says she feels better but still cannot lie flat. PAST HISTORY: She has a history of methamphetamine addiction, but she states that she has been clean for 15 years. What totally convinced her was that she was about to lose her children. Her parents said they would take her children if she did not get clean, therefore, she was able to quit using methamphetamine and she states she has not used any since the last 15 years. SOCIAL HISTORY: Both her parents were intravenous drug users. They were ultimately able to get clean when the patient was a child. The patient did have an IUD in place prior to having these tubo-ovarian abscesses treated. No chest pain or pressure. The patient had to lie on 3 pillows at home. Here, she is able to lay on 1-2 pillows, but still cannot lie flat very long. The patient also had shortness of breath with exertion. The patient received Lasix 40 mg in the emergency room. FAMILY HISTORY: Paternal aunt with coronary disease. Paternal grandfather with heart failure. SOCIAL HISTORY: As mentioned, previous meth use, clean for 15 years. Previous [id number] history of smoking, quit 2 years ago. REVIEW OF SYSTEMS: CONSTITUTIONAL: No significant weight gain or loss. VISION: No changes. HEARING: No changes. PULMONARY: No cough or wheezing. GASTROINTESTINAL: No nausea, vomiting, or diarrhea. SKIN: No rashes. NEUROLOGIC: No unilateral weakness or numbness. PSYCHIATRIC: No unusual depression or anxiety. PHYSICAL EXAMINATION: GENERAL: This is a thin 38-year-old woman. She said she has lost some of her teeth, but still has most of her teeth. VITAL SIGNS: Blood pressure 108/79, pulse 62 and regular. NECK: Veins are normal. Carotid normal upstrokes. LUNGS: Clear. CARDIAC: There is a 2/6 to 3/6 apical systolic murmur of mitral regurgitation. ABDOMEN: Soft, nontender. EXTREMITIES: Warm and dry. No clubbing. No cyanosis. No edema. PERTINENT LABORATORY DATA: Her creatinine is 0.95. The potassium is 3.8. Hemoglobin is 14. EKG, there is an incomplete right bundle-branch block with a QRS of only 0.08 with T-wave inversion in lead III. Chest x-ray did not show definitely pulmonary vascular congestion. Looking back at the chest x-ray from October, the patient had these episodes assessed as is outlined above. She did have what looked like pulmonary edema. At that time, it was thought to be noncardiogenic pulmonary edema, but in retrospect that may be pulmonary edema from her mitral valve. Her BNP was 901. Echocardiogram, Dr. Elliott, read that. He thought the ejection fraction was 40% to 50%, but I think it is really closer to 50%. The patient does have what looks like severe mitral stenosis with moderate mitral regurgitation. The valve area is calculated at 1.2 sq cm. Pulmonary artery pressure is elevated at 53 mmHg systolic. CONCLUSION: 1. Congestive heart failure, probably systolic and diastolic mixed, mostly due to mitral valvular disease. 2. Still unable to lie flat. I tried to have her lay flat. She was able to lie flat for about a minute before having to sit up again. PLAN: 1. Give her additional intravenous Lasix. 2. Ultimately, when she is able to lie flat, proceed to cardiac catheterization. She will likely need mitral valve surgery, hopefully, mitral valve repair. 3. We will follow with you. Job ID: [id number]
[2019-05-27 05:17] LABS: Anion Gap 14 mmol/L (10-20); BUN (Urea Nitrogen) 16 mg/dL (7.0-18.7); Calc. Creatinine Clearance 74 mL/min (70-130); Calcium 9.4 mg/dL (7.8-10.44); Carbon Dioxide 18 mmol/L (22-29); Chloride 104 mmol/L (98-107); Estimated GFR-MDRD 68; Glucose 90 mg/dL (70-105); Potassium 3.8 mmol/L (3.5-5.1); Sodium 132 mmol/L (136-145)
[2019-05-27] MEDS: traMADol HCl 50 MG TAB PO PRN ×4 (05:19→21:23)
--- NOTE | 2019-05-27 06:25 | PDOC.FM ---
- Subjective Subjective: Patient resting comfortably in bed this morning. States she was able to lie flat this morning for about 5 minutes and did not feel short of breath. Denies any chest pain, palpitations, abdominal pain, nausea, cough, congestion. - Objective MAR Reviewed: Yes Vital Signs & Weight: Vital Signs (12 hours) Temp Pulse Resp BP Pulse Ox 05/27/19 04:00 97.6 F 69 20 101/72 98 05/26/19 23:11 97 F L 59 L 18 109/76 99 05/26/19 20:23 98.1 F 72 16 102/78 100 Weight Weight 55.883 kg I&O: 05/25/19 05/26/19 05/27/19 06:59 06:59 06:59 Intake Total 480 670 904 Output Total 900 400 800 Balance -420 270 104 Result Diagrams: 05/25/19 08:42 05/27/19 04:50 Phys Exam - Physical Examination Constitutional: NAD HEENT: moist MMs, sclera anicteric Neck: supple, full ROM Respiratory: no wheezing, clear to auscultation bilateral Cardiovascular: RRR grade II systolic murmur over mitral valve Gastrointestinal: soft, non-tender, positive bowel sounds Musculoskeletal: no edema, pulses present Neurological: normal sensation, moves all 4 limbs Psychiatric: normal affect, A&O x 3 Skin: no rash, normal turgor Dx/Plan (1) New onset of congestive heart failure Code(s): I50.9 - HEART FAILURE, UNSPECIFIED Status: Acute (2) Systolic and diastolic CHF, acute Code(s): I50.41 - ACUTE COMBINED SYSTOLIC AND DIASTOLIC (CONGESTIVE) HRT FAIL Status: Acute (3) History of methamphetamine abuse Code(s): F15.11 - OTHER STIMULANT ABUSE, IN REMISSION Status: Resolved - Plan Plan: 38yo F with h/o meth abuse (clean 15 years) presents for shortness of breath. #New onset mixed systolic & diastolic CHF - suspected d/t mitral valve issues as seen on ECHO - Sxs since Oct 2018, no acute changes, dyspnea with exertion, orthopnea and PND. BNP 901 on admission. pro-BNP was 5000 on 05/22 per [facility] clinic records -repeat BNP 149 on 05/26 - Euvolemic on exam, no LE edema, CXR WNL, originally using 3 pillows to sleep, now down to 1 pillow to sleep- was able to lie flat for about 5 min this AM - s/p 40mg IV lasix in ED x1, Cardiology started daily Lasix on 05/25 - ECHO shows EF of 40-50% (likely closer to 50% per Cardiology), rheumatic changes of mitral valve, decreased mitral mobility, mod-severe mitral stenosis, mod MR, mild TR, elevated RV pressure - Risk factors for recent ICU stay and h/o drug abuse - EKG with RBBB and T wave inversion in lead III - Cardiology consulted--Dr. Lozoya, appreciate recommendations -plan is when patient able to lie flat to then proceed with cardiac catheterization -ultimately patient will need mitral valve surgery/repair #H/o Meth abuse - clean 15 years - admits to THC use, c/w UDS +marijuana this admission - prior smoker, 20py, quit 2 years ago #Abdominal Cramping -d/t menses, does have hx of tubo-ovarian abscess with cleanout in Dec 2018 -Tylenol prn -Tramadol prn for breakthrough pain VTE: SCD Diet: HH Code status: Full Dispo: Stable, Cardiology consulted, plan to continue Lasix daily. Monitor patient's ability to lie flat and then proceed with cardiac cath. Addendum - Attending - Attending Attestation Date/Time: 05/27/19 2273 I personally evaluated the patient and discussed the management with Dr. Melissa I agree with the History, Examination, Assessment and Plan documented above with any addition or exceptions noted below. Cath tomorrow. Will determine transfer to outside facility for valve repair vs outpatient arrangement. Upgraded to inpatient today.
[2019-05-27] MEDS: Famotidine 20 MG TAB PO SCH ×2 (08:58→21:24)
[2019-05-27] MEDS: Potassium Chloride 20 MEQ TAB PO SCH (08:59)
[2019-05-27] MEDS ORDERED: Enoxaparin Sodium 40 MG/0.4 ML SYRINGE SC SCH (09:00)
[2019-05-27] MEDS ORDERED: Furosemide 20 MG/2 ML VIAL SLOW IVP SCH (09:00)
[2019-05-27] MEDS ORDERED: Communication Order-Pharmacy FS SCH (10:30)
--- NOTE | 2019-05-27 10:46 | PRG ---
DATE OF SERVICE: 05/27/2019 SUBJECTIVE: Ms. Fish feels better. She is able to lie flat today. Interestingly, she said with the Lasix yesterday, she did not put out a lot of urine. She got 40 mg IV then. But this morning, she got 20 mg of Lasix and she is urinating more she said. She feels much more comfortable today. OBJECTIVE: VITAL SIGNS: Her blood pressure 110/80 and pulse 64, it is regular. LUNGS: Clear. CARDIAC: No new murmur, rub, or gallop. ABDOMEN: Soft and nontender. ASSESSMENT: 1. Congestive heart failure, mostly diastolic with mitral stenosis and some mitral regurgitation. 2. Borderline left ventricular function. According to Dr. Elliott, he thought ejection fraction 40% to 50%, he thinks it is close to 50, but there does appear to be a mild component of systolic heart failure. PLAN: Proceed to cardiac catheterization tomorrow. Discussed risk of stroke, heart attack, iodine allergy, loss of blood supply to leg or kidney, stent thrombosis, stent restenosis. She understands and wished to proceed. She understands it is unlikely she has coronary artery blockages, but if she did have critical lesions, stent implantation could be done. Job ID: [id number]
[2019-05-28 05:47] VITALS: BMI 24.9
[2019-05-28] MEDS ORDERED: Diazepam 5 MG TAB PO SCH (06:00)
[2019-05-28] MEDS ORDERED: Sodium Chloride 0.9% 1,000 ML IV SCH ×2 (06:00→09:30)
--- NOTE | 2019-05-28 06:46 | PDOC.FM ---
- Subjective Subjective: Patient lying flat in bed this AM, resting comfortably. States she has no complaints this AM. Denies chest pain, cough, congestion, shortness of breath, swelling, abdominal pain. - Objective Vital Signs & Weight: Vital Signs (12 hours) Temp Pulse Resp BP BP Pulse Ox 05/28/19 04:00 97.0 F L 76 14 92/74 100 05/27/19 23:51 98.2 F 64 14 100/70 97 05/27/19 19:05 98.2 F 67 16 113/85 99 Weight Weight 55.928 kg I&O: 05/26/19 05/27/19 05/28/19 06:59 06:59 06:59 Intake Total 670 1384 800 Output Total 400 1200 600 Balance 270 184 200 Result Diagrams: 05/25/19 08:42 05/27/19 04:50 Phys Exam - Physical Examination Constitutional: NAD HEENT: moist MMs, sclera anicteric Neck: no JVD, supple, full ROM Respiratory: no wheezing, no rhonchi, clear to auscultation bilateral Cardiovascular: RRR grade II systolic murmur over mitral valve Gastrointestinal: soft, no distention, positive bowel sounds Musculoskeletal: no edema, pulses present Neurological: normal sensation, moves all 4 limbs Psychiatric: normal affect, A&O x 3 Skin: no rash, normal turgor Dx/Plan (1) New onset of congestive heart failure Code(s): I50.9 - HEART FAILURE, UNSPECIFIED Status: Acute (2) Systolic and diastolic CHF, acute Code(s): I50.41 - ACUTE COMBINED SYSTOLIC AND DIASTOLIC (CONGESTIVE) HRT FAIL Status: Acute - Plan Plan: 38yo F with h/o meth abuse (clean 15 years) presents for shortness of breath. #New onset mixed systolic & diastolic CHF - suspected d/t mitral valve issues as seen on ECHO - Sxs since Oct 2018, no acute changes, dyspnea with exertion, orthopnea and PND. BNP 901 on admission. pro-BNP was 5000 on 05/22 per [facility] clinic records -repeat BNP 149 on 05/26 - Euvolemic on exam, no LE edema, CXR WNL, originally using 3 pillows to sleep, now down to being able to lie flat to sleep - s/p 40mg IV lasix in ED x1, Cardiology started daily Lasix on 05/25 - ECHO shows EF of 40-50% (likely closer to 50% per Cardiology), rheumatic changes of mitral valve, decreased mitral mobility, mod-severe mitral stenosis, mod MR, mild TR, elevated RV pressure - Risk factors for recent ICU stay and h/o drug abuse - EKG with RBBB and T wave inversion in lead III - Cardiology consulted--Dr. Lozoya, appreciate recommendations -plan to proceed with cardiac catheterization today -ultimately patient will need mitral valve surgery/repair, but undecided whether this will be accomplished with direct transfer to another hospital from this facility vs arrangement as an outpatient #H/o Meth abuse - clean 15 years - admits to THC use, c/w UDS +marijuana this admission - prior smoker, 20py, quit 2 years ago #Abdominal Cramping -d/t menses, does have hx of tubo-ovarian abscess with cleanout in Dec 2018 -Tylenol prn -Tramadol prn for breakthrough pain VTE: SCD Diet: HH Code status: Full Dispo: Stable, Cardiology consulted, plan to continue Lasix daily. Plan for cardiac cath this AM. Addendum - Attending - Attending Attestation Date/Time: 05/28/19 1302 I personally evaluated the patient and discussed the management with Dr. Melissa. I agree with the History, Examination, Assessment and Plan documented above with any addition or exceptions noted below. Cath today. Awaiting recs per cards.
[2019-05-28] MEDS: Famotidine 20 MG TAB PO SCH ×2 (07:55→20:58)
[2019-05-28] MEDS ORDERED: Fentanyl 100 MCG/2 ML VIAL ONE (08:31)
[2019-05-28] MEDS ORDERED: Midazolam HCl 2 mg/2 ml Vial ONE (08:31)
[2019-05-28] MEDS ORDERED: Iopamidol 370 76% 100 ML VIAL ONE (09:00)
[2019-05-28] MEDS ORDERED: Sodium Chloride 0.9% 200 ML IV PRN (09:29)
[2019-05-28] MEDS ORDERED: Acetaminophen/Codeine 30-300mg Tablet PO PRN (09:29)
[2019-05-28] MEDS: Potassium Chloride 20 MEQ TAB PO SCH (10:18)
--- NOTE | 2019-05-29 06:58 | PDOC.FM ---
- Subjective Subjective: Patient resting quietly in bed this morning, states she feels comfortable and has no complaints. Spoke with Cardiology this morning, she has severe mitral regurgitation and mitral stenosis, will need valve repair which will be scheduled hopefully in [place]. This will be arranged on an outpatient basis. - Objective MAR Reviewed: Yes Vital Signs & Weight: Vital Signs (12 hours) Temp Pulse Resp BP Pulse Ox 05/29/19 03:37 98.5 F 96 22 H 100/62 97 05/28/19 19:55 98.2 F 84 14 99 Weight Weight 56.245 kg I&O: 05/27/19 05/28/19 05/29/19 06:59 06:59 06:59 Intake Total 1384 800 720 Output Total 1200 600 Balance 184 200 720 Result Diagrams: 05/25/19 08:42 05/27/19 04:50 Phys Exam - Physical Examination Constitutional: NAD HEENT: moist MMs, sclera anicteric Neck: no JVD, full ROM Respiratory: no wheezing, no rhonchi, clear to auscultation bilateral Cardiovascular: RRR grade II systolic murmur over mitral valve Gastrointestinal: soft, no distention, positive bowel sounds Musculoskeletal: no edema, pulses present Neurological: non-focal, normal sensation, moves all 4 limbs Psychiatric: normal affect, A&O x 3 Skin: no rash, normal turgor Dx/Plan (1) New onset of congestive heart failure Code(s): I50.9 - HEART FAILURE, UNSPECIFIED Status: Acute (2) Systolic and diastolic CHF, acute Code(s): I50.41 - ACUTE COMBINED SYSTOLIC AND DIASTOLIC (CONGESTIVE) HRT FAIL Status: Acute - Plan Plan: 38yo F with h/o meth abuse (clean 15 years) presents for shortness of breath. #New onset mixed systolic & diastolic CHF - suspected d/t mitral valve issues as seen on ECHO - Sxs since Oct 2018, no acute changes, dyspnea with exertion, orthopnea and PND. BNP 901 on admission. pro-BNP was 5000 on 05/22 per [facility] clinic records -repeat BNP 149 on 05/26 - Euvolemic on exam, no LE edema, CXR WNL, originally using 3 pillows to sleep, now down to being able to lie flat to sleep - s/p 40mg IV lasix in ED x1, Cardiology started daily Lasix on 05/25 - ECHO shows EF of 40-50% (likely closer to 50% per Cardiology), rheumatic changes of mitral valve, decreased mitral mobility, mod-severe mitral stenosis, mod MR, mild TR, elevated RV pressure - Risk factors for recent ICU stay and h/o drug abuse - EKG with RBBB and T wave inversion in lead III - Cardiology consulted--Dr. Lozoya, appreciate recommendations -cardiac catheterization on 05/27, official report pending but paper chart shows that had normal coronary arteries, LVEF of 55%, severe MR & MS, elevated right ventricular pressures suggestive of Pulmonary HTN -ultimately patient will need mitral valve surgery/repair, with arrangement by Dr. Lozoya to be completed at [facility] as an outpatient -ordered CTA chest to r/o PE d/t elevated RVP seen during cardiac cath, if CTA does not reveal a PE then patient okay to d/c home #H/o Meth abuse - clean 15 years - admits to THC use, c/w UDS +marijuana this admission - prior smoker, 20py, quit 2 years ago #Abdominal Cramping -d/t menses, does have hx of tubo-ovarian abscess with cleanout in Dec 2018 -Tylenol prn -Tramadol prn for breakthrough pain VTE: SCD Diet: HH Code status: Full Dispo: Stable, Cardiology consulted, plan to continue Lasix 20 daily. Pending CTA for evaluation of Pulm HTN, r/o PE. Anticipate discharge to home later today if CTA is normal. Addendum - Attending - Attending Attestation Date/Time: 05/29/19 6115 I personally evaluated the patient and discussed the management with Dr. Melissa. I agree with the History, Examination, Assessment and Plan documented above with any addition or exceptions noted below. d/c home today.
[2019-05-29] MEDS ORDERED: Furosemide 20 MG TAB PO SCH (09:00)
[2019-05-29] MEDS: Famotidine 20 MG TAB PO SCH (09:08)
[2019-05-29] MEDS: Potassium Chloride 20 MEQ TAB PO SCH (09:08)
--- NOTE | 2019-05-29 09:08 | CT ---
Exam: CT angiogram of the chest HISTORY: Dyspnea. Evaluate for pulmonary artery embolism. Patient had a cardiac catheterization yeste rday. COMPARISON: None TECHNIQUE: CT angiogram of the chest is performed in the axial plane. Three-dimensional reformatted i mages are submitted for interpretation FINDINGS: Mediastinum: Probably prominent conglomeration of prevascular lymph node measuring 1.0 x 1.7 cm HEART: Normal size. No significant pericardial fluid. Aorta: Imaging evaluation due to lack of contrast opacification. No evidence of dilatation. Upper solid abdominal viscera: No abnormality enhancement. Trachea and central bronchi: Patent Pleural spaces: No effusion Lung parenchyma: No masses or consolidation Nodules: Pleural-based 0.3 cm nodules along the right upper lobe. 0.3 cm pleural-based nodule along t he left upper lobe. All of the aforementioned nodules have solid appearance. Incidental blebs in the right upper lobe measuring 0.6 cm Pneumothorax: None Osseous structures: No lytic or blastic lesions Pulmonary arteries: Adequate contrast opacification pulmonary arterial system to the level of segment al arteries. No filling defect to suggest pulmonary embolism IMPRESSION: 1. No evidence of pulmonary artery embolism to the level of the segmental arteries. 2. Incidental pleural-based solid nodules likely representing subpleural lymph nodes. 3. Nonspecific mildly enlarged precarinal lymph node Code lung nodule
[2019-05-29] MEDS ORDERED: Iopamidol 370 76% 100 ML VIAL ONE (11:16)
[2019-05-29 11:56] VITALS: BP 90/63; TEMP 98.1
--- NOTE | 2019-05-30 02:41 | DIS ---
DATE OF ADMISSION: 05/24/2019 DATE OF DISCHARGE: 05/29/2019 RESIDENT: Ashley Melissa DO ADMITTING ATTENDING: James Miller MD DISCHARGE ATTENDING: Maikol Hyatt MD CONSULTS: 1. Cardiology, Dr. Lozoya. 2. Cardiac rehab. 3. CV team. 4. Heart failure Clinic. 5. Walking program. PROCEDURES: 1. Chest x-ray on May 24, 2019: No significant acute intrathoracic disease. 2. Echocardiogram on May 25, 2019: Ejection fraction is visually estimated at 40% to 50% (per Cardiology is closer to 50%). Mildly dilated left atrium. Left ventricular size is normal. Rheumatic changes of mitral valve. Decreased mitral valve mobility. Moderate to severe mitral stenosis. Moderate mitral regurgitation. Mild tricuspid regurgitation. Right ventricular systolic pressure was elevated (per Cardiology is close to 80). 3. Cardiac cath on May 28, 2019, with Dr. Lozoya: Normal, official report pending at time of this dictation. 4. Chest/thorax CTA on May 29, 2019: No evidence of pulmonary embolism. Incidental pleural-based solid nodules, likely representing subpleural lymph nodes. Nonspecific mildly enlarged precarinal lymph node. PRIMARY DIAGNOSIS: New onset mixed systolic and diastolic congestive heart failure. SECONDARY DIAGNOSES: 1. Mitral valve stenosis. 2. Mitral valve regurgitation. 3. Elevated right ventricular pressure, suggestive of pulmonary hypertension. 4. History of methamphetamine abuse. 5. Abdominal cramping secondary to menses. DISCHARGE MEDICATIONS: 1. Furosemide 20 mg p.o. daily. 2. Potassium chloride 20 mEq p.o. daily. DISCONTINUED MEDICATIONS: None. HISTORY OF PRESENT ILLNESS/HOSPITAL COURSE: The patient is a 38-year-old female with a past medical history of methamphetamine abuse, who has been clean for 15 years, who presents to the emergency department with shortness of breath on May 24, 2019. The patient states she was hospitalized in October 2018 for a tubo-ovarian abscess on the right side, which resulted in sepsis. She spent about a week in ICU at that time. Since then, she has had progressive dyspnea with exertion. She is now unable to walk up a flight of stairs or even get dressed without getting short of breath. She has three-pillow orthopnea, PND up to three times per night. Occasional lower extremity edema to the ankles at the end of the day. No acute changes or worsening. No recent illness. Denies nausea, vomiting, diaphoresis. Does endorse heartburn-like chest pain, lying flat after meals and at night, burning sensation in throat. No known cardiac history. In the emergency department, the patient was given 1 dose of 40 mg IV Lasix. The patient was admitted to the telemetry unit for suspected new onset congestive heart failure. Her lab work revealed a BNP of 901. Her vital signs were stable and she was essentially euvolemic on exam. Her EKG revealed a new right bundle- branch block and T-wave inversions in lead III. At this point, Cardiology, Dr. Lozoya was consulted, who recommended an echocardiogram. On the morning of May 26, 2019 , the patient complained of abdominal cramping. She was given Tylenol, which did not help. She stated at home she normally takes tramadol with menses. At that time , she was given a dose of tramadol to help with abdominal pain, which then resolved. On the morning of May 27, 2019, the patient's echocardiogram resulted with the findings as stated above. Dr. Lozoya arranged for the patient to proceed with cardiac catheterization on May 28, 2019. The patient tolerated this procedure well and per Dr. Lozoya, the catheterization was essentially normal. Official report is still pending at the time of this dictation. During the cardiac cath, Dr. Lozoya did report that the right ventricular pressure was estimated to be 80, suggestive of pulmonary hypertension. He also noted severe mitral regurgitation and mitral stenosis. At that time, Dr. Lozoya was concerned for a possible pulmonary embolism as a cause of the patient's pulmonary hypertension and shortness of breath. He ordered a CTA of the chest and thorax, which ultimately resulted negative on the morning of May 28. Due to the patient's significant issues with her mitral valve, she will need to have this valve replaced surgically. This will be a major surgery that needs to be done in the [place] area. Dr. Lozoya will be arranging for followup with cardiovascular surgeon in [place] on an outpatient basis. On the morning of May 29, 2019, the patient was deemed clinically stable for discharge back to home. She will have close followup with [facility] as primary team and with Dr. Lozoya in Cardiology for arrangement of her mitral valve surgery. DISPOSITION: Stable. DISCHARGE INSTRUCTIONS: 1. Location: Home. 2. Diet: Heart healthy. 3. Activity: As tolerated. 4. Followup: a. Follow up with [facility] on June 04, 2019. b. Follow up with Dr. Lozoya as instructed. c. Follow up with cardiac rehab in 2 to 3 weeks. Job ID: [id number] MTDD
--- NOTE | 2019-05-30 07:19 | PQF ---
JOSEPH JERRYJOE [id number] [facility]-263 [id number] CLINICAL DOCUMENTATION CLARIFICATION FORM: POST DISCHARGE Addendum to original discharge summary date: ____ Late entry note date: __ DATE:05/30/2019 ATTN: Joe Yanez Please exercise your independent, professional judgment in responding to the clarification form. Clinical indicators are provided on the bottom of this form for your review Please check appropriate box(s): [ ] Hyponatremia [x ] Abnormal laboratory findings not clinically significant [ ] Other diagnosis [ ] Unable to determine In addition, please specify: Present on Admission (POA): [ ] Yes [ x ] No [ ] Unable to determine CLINICAL INDICATORS - SIGNS / SYMPTOMS / LABS Laboratory 05/23 - Sodium 137 Laboratory 05/24 -Sodium 135 Laboratory 05/26 -Sodium 132 HP p1 05/23 Occasional LE edema HP p5 05/23 Lightheadedness RISK FACTORS H&P 05/23 - Hx of Smoking Discharge summary 05/28 - Acute CHF systolic and Diastolic Discharge summary 05/28 -Mitral stenosis Discharge summary 05/28 - Mitral regurgitation HP p1 05/23 -Former Smoker HP p4 05/23 -Use of Lasix TREATMENTS: APR 08 - IVF NS 1L Laboratory Monitoring -Collected 05/23APR 08 - Sodium Chloride 1000ml IV (This form is maintained as a part of the permanent medical record) 2014 [employer]. All Rights Reserved [email or web address]
== END 2019-05-29 12:45 | disposition home or self-care (01) | DRG 286 ==
LOC: ERS 13:33 → 2SE 14:51 → OBSVTOIN 14:51 → 2NO 05-28 18:22
PROVIDERS: ADMIT Student in an Organized Health Care Education/Training Program; ATTEND Student in an Organized Health Care Education/Training Program
PROC: 4A023N8 Measurement of Cardiac Sampling and Pressure, Bilateral, Percutaneous Approach (ICD-10-PCS; principal; 2019-05-28)
PROC: B2161ZZ Fluoroscopy of Right and Left Heart using Low Osmolar Contrast (ICD-10-PCS; 2019-05-28)
PROC: B2111ZZ Fluoroscopy of Multiple Coronary Arteries using Low Osmolar Contrast (ICD-10-PCS; 2019-05-28)
DX: I08.3 Combined rheumatic disorders of mitral, aortic and tricuspid valves (principal); I50.41 Acute combined systolic (congestive) and diastolic (congestive) heart failure; I27.20 Pulmonary hypertension, unspecified; R10.9 Unspecified abdominal pain; Z87.891 Personal history of nicotine dependence
CPT/HCPCS: 36415; 71045; 71275; 76942; 80048; 80053; 80061; 80306; 81003; 82550; 83735; 83880; 84100; 84443; 84484; 85025; 93005; 93306; 93460; 93561; 93798; 96374; 99152; 99153; C1769; J1644; J1650; J1940; J2250; J3010; Q9967

== ENCOUNTER 2019-07-22 14:14 | Outpatient (CLI) | payer BC ==
--- NOTE | 2019-07-22 14:32 | RAD ---
EXAM: Chest PA and lateral: HISTORY: Nonrheumatic mitral valve stenosis. COMPARISON: 10/16/2018, 05/24/2019 FINDINGS: There are median sternotomy wires. Heart: Normal heart size. Prosthetic heart valve noted. 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 Aorta: Unremarkable Pulmonary vessels: Normal Costophrenic angles: Costophrenic angles are clear. Lungs: No consolidation or masses. Pneumothorax: No pneumothorax Osseous structures: No osseous abnormalities IMPRESSION: 1. No acute cardiopulmonary process 2. 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
== END 2019-07-22 14:15 | disposition home or self-care (01) ==
LOC: BICRAD 14:14
PROVIDERS: ATTEND Nurse Practitioner Family
DX: I34.2 Nonrheumatic mitral (valve) stenosis (principal); Z95.2 Presence of prosthetic heart valve
CPT/HCPCS: 71046

== ENCOUNTER 2019-11-20 08:46 | Outpatient (CLI) | payer BC, OTHER ==
--- NOTE | 2019-11-20 16:20 | HP ---
She is set for surgery on 11/23. HISTORY OF PRESENT ILLNESS: Ms. Fish is a 39-year-old white female, who has a significant family history of uterine and ovarian cancers. Her mother has history of uterine and ovarian cancer and rectal cancer. Maternal grandmother had also uterine cancer. Her maternal aunt also has uterine cancer, and her mother has breast cancer. She has two spontaneous vaginal deliveries and has done with childbearing and she has also had a history of recent mitral valve repair by Dr. Odonnell at the [facility] in [place]. She is followed by Dr. Lozoya as her cell maker and is on Coumadin 5 mg per day for the valve. She denies any irregular menses or current pelvic pain. She has had a recent CT of the abdomen and pelvis preoperatively for her heart surgery, which showed no abnormalities of the uterus, tubes, ovaries, etc. PAST MEDICAL HISTORY: Mitral valve disorder with recent repair. SURGICAL HISTORY: Mitral valvectomy and repair. CURRENT MEDICATIONS: Coumadin 5 mg tablet daily. ALLERGIES: SHE HAS NO KNOWN DRUG ALLERGIES. SOCIAL HISTORY: Former smoker. Not currently smoking. No excessive alcohol use. FAMILY HISTORY: As per HPI. PHYSICAL EXAMINATION: VITAL SIGNS: Her height is 4 feet 11 inches, weight 137, BMI 27.7, blood pressure 112/80, pulse 80, respiratory rate 18, and O2 saturation 99% on room air. HEENT: Within normal limits. CHEST: Clear to auscultation. HEART: Regular rate and S1 and S2 with mechanical valve audible on exam. She has a well-healed thoracotomy incision. BREASTS: No masses, nipple discharge, or skin changes. ABDOMEN: Soft, nontender, nondistended with no palpable masses. PELVIC: Vulva and vagina had no lesions. Cervix had no lesions. Uterus small, nontender. Adnexa, nontender with no masses. She also is up to date with her Pap smears. ASSESSMENT: This is a 39-year-old white female, G2, P2, status post mitral valve repair greater than 3 months, referred for surgical prevention due to strong family history of uterine, ovarian cancer and also maternal grandmother with rectal cancer and mother with premenopausal breast cancer. PLAN: Plan is to proceed with robotic TLH BSO. Recent screening mammogram was normal. She is seeing Dr. Lozoya of Cardiology, and she is okayed for surgery. She will be bridged off the warfarin to Lovenox pre and postoperatively. The surgery is set for 11/24/2019. Risks and benefits were again discussed in detail. Job ID: [id number]
[2019-11-20 20:04] LABS: BHCG - Serum Negative (NEGATIVE); Pregs Control Background? CLEAR/WHITE (CLR/WHITE); Pregs Control Bar Appear? YES (CONTROL BAR)
== END 2019-11-20 08:47 | disposition home or self-care (01) ==
LOC: LABBT 08:46
PROVIDERS: ATTEND Obstetrics & Gynecology
DX: Z01.812 Encounter for preprocedural laboratory examination (principal); Z80.3 Family history of malignant neoplasm of breast; Z80.41 Family history of malignant neoplasm of ovary; Z80.0 Family history of malignant neoplasm of digestive organs
CPT/HCPCS: 84703

== ENCOUNTER 2019-11-24 05:28 | Day surgery (SDC) | payer BC, OTHER ==
[2019-11-20 14:27] VITALS: BMI 27.2
[2019-11-20 18:25] LABS: #Basophils 0.1 thou/uL (0.0-0.2); #Lymphocytes 1.3 thou/uL (1.20-3.40); #Monocytes 0.4 thou/uL (0.11-0.59); #Neutrophils 2.6 thou/uL (1.40-6.50); %Basophils 1.3 % (0.0-1.0); %Eosinophils 1.1 % (0.0-10.0); %Lymphocytes 29.7 % (21.0-51.0); %Monocytes 9.7 % (0.0-10.0); %Neutrophils 58.2 % (42.0-75.0); Hemoglobin 12.7 g/dL (12.0-16.0); Mean Corpuscular HGB CONC 33.2 g/dL (32.0-36.0); Mean Corpuscular Hemoglobin 28.9 pg (27.0-31.0); Mean Corpuscular Volume 87.1 fL (78.0-98.0); Mean Platelet Volume 8.8 fL (7.4-10.4); Platelet Count 221 thou/uL (130-400); RBC Distribution Width 12.8 % (11.5-14.5); Red Blood Cell (RBC) Count 4.38 mill/uL (4.20-5.40); White Blood Cell (WBC) Count 4.4 thou/uL (4.8-10.8)
[2019-11-21 12:51] LABS: SARS-CoV-2 MS2 Positive; SARS-CoV-2 N Gene Negative; SARS-CoV-2 S Gene Negative; SARS-CoV-2 by NAA Not Detected (NotDetected); SARS-CoV-2 orf1ab Negative
[2019-11-24] MEDS ORDERED: Gabapentin 300 MG CAP ONE (06:18)
[2019-11-24] MEDS ORDERED: Famotidine/PF 20 mg/2ml Vial ONE (06:19)
[2019-11-24] MEDS ORDERED: CeleCOXIB 100 MG CAP ONE (06:19)
[2019-11-24] MEDS ORDERED: Bupivacaine HCl 0.5%/Epinephrine 1:200,000/PF 30 ml Vial ONE (06:44)
[2019-11-24] MEDS ORDERED: Methylene Blue 50 MG/10 ML AMPUL ONE (06:44)
[2019-11-24] MEDS ORDERED: Fentanyl 250 MCG/5 ML VIAL ONE (06:57)
[2019-11-24] MEDS ORDERED: SUGAMMADEX SODIUM 200 MG/2 ML VIAL ONE (06:57)
[2019-11-24] MEDS ORDERED: Ondansetron HCl/PF 4 MG/2 ML Vial IVP PRN (09:22)
[2019-11-24] MEDS ORDERED: Promethazine HCl 25 MG/ML VIAL SLOW IVP PRN (09:22)
[2019-11-24] MEDS ORDERED: Meperidine HCl/PF 25 MG/ML VIAL SLOW IVP PRN (09:22)
[2019-11-24] MEDS ORDERED: Promethazine HCl 25 MG/ML VIAL IM PRN ×2 (09:22→09:36)
[2019-11-24] MEDS ORDERED: Ondansetron PF 4 MG/2 ML Vial IVP PRN (09:36)
[2019-11-24] MEDS ORDERED: Bisacodyl 10 MG SUPP PR PRN (09:36)
[2019-11-24] MEDS ORDERED: Zolpidem Tartrate 5 MG TAB PO PRN (09:36)
[2019-11-24] MEDS ORDERED: Simethicone Chewable 80 MG TAB PO PRN (09:36)
[2019-11-24] MEDS ORDERED: diphenhydrAMINE 25 MG CAP PO PRN (09:36)
[2019-11-24] MEDS ORDERED: HYDROcodone/Acetaminophen 5/325 mg Tablet PO PRN ×2 (09:36)
[2019-11-24] MEDS ORDERED: Morphine 4 MG/ML VIAL SLOW IVP PRN (09:36)
[2019-11-24] MEDS ORDERED: Furosemide 20 MG TAB PO PRN (09:39)
[2019-11-24] MEDS ORDERED: Potassium Chloride 20 MEQ TAB PO PRN (09:39)
[2019-11-24] MEDS ORDERED: Meperidine HCl/PF 25 MG/ML VIAL ONE (09:44)
[2019-11-24] MEDS ORDERED: Sodium Chloride 0.9% 1,000 ML IV SCH (09:45)
[2019-11-24] MEDS ORDERED: Fentanyl 100 MCG/2 ML VIAL ONE ×2 (10:02→11:32)
--- NOTE | 2019-11-24 11:08 | OP ---
DATE OF PROCEDURE: 11/24/2019 PREOPERATIVE DIAGNOSES: 1. A 39-year-old white female, G2, P2, with family history of ovarian, uterine, and breast cancer. 2. Also menorrhagia. POSTOPERATIVE DIAGNOSES: 1. A 39-year-old white female, G2, P2, with family history of ovarian, uterine, and breast cancer. 2. Also menorrhagia. PROCEDURES PERFORMED: 1. Robotic total laparoscopic hysterectomy with bilateral salpingo-oophorectomy. 2. Lysis of adhesions. BOAT OUTFITTING SUPERVISOR SURGEON: KAVEH Barriga ANESTHESIA: General endotracheal. ESTIMATED BLOOD LOSS: 50 mL. COMPLICATIONS: None. COUNTS: Correct x2. PATHOLOGY: Uterus, cervix, and bilateral tubes and ovaries. FINDINGS: 1. Bilateral tubes and ovaries were noted to have filmy pelvic adhesions to each pelvic sidewall, status post lysis of adhesions. 2. Uterus otherwise normal in appearance with some filmy adhesions, status post lysis of adhesions. 3. Bladder was watertight to fluid distention greater than 300 mL intraop and postprocedure along with clear urine draining from Batista catheter. DISPOSITION: Recovery room, stable. DESCRIPTION OF PROCEDURE: The patient previously received informed consent in regard to surgery. She was taken back to the operating room, where she received a general endotracheal anesthetic agent without complications. She was placed in dorsal lithotomy position with the use of Porter stirrups. She was prepped and draped in usual sterile fashion. A side-arm speculum was placed in the vagina after Batista catheter had been placed. The cervix was grasped with single-tooth tenaculum. The uterus sounded to 7.5 cm. A size 6 cm JESSICA uterine manipulator with a 3.5 cm cup was placed in usual fashion. Tenaculum and speculum were then removed. Attention was then turned to the abdomen, where perspective trocar sites were infiltrated with 0.5% Marcaine with epinephrine. A 12 mm supraumbilical incision was made, and Veress needle was entered into the peritoneal cavity. The patient's pressure was noted to be less than 5 mm. The abdomen was insufflated to the patient's pressure of 15, approximately 4.5 L of carbon dioxide gas. The Veress needle was then removed. A size 12 mm trocar was placed through the umbilical incision site, and the laparoscope was introduced through the trocar sleeve confirming proper entry. Additional bilateral lower quadrant 8 mm trocars were placed with an additional right upper quadrant janitorial assistant port. The patient was placed in deep Trendelenburg, and the robot was docked. I then broke scrub and proceeded to carry out the procedure from the operative console while my assistants remained at the bedside. The uterus was elevated from the pelvis. The filmy adhesions that were seen were noted in the posterior cul-de-sac and pelvic sidewall. These were taken down with bipolar fenestrated cautery and monopolar scissors and countertraction by my janitorial assistant. This then freed the adnexal structures from the pelvic sidewall and the posterior cul-de-sac region. I then proceeded to coagulate the left infundibulopelvic ligament, transected it with monopolar scissors. Then, serial coagulation of the broad ligament hugging close to the uterus was carried down until the left round ligament was reached. It was coagulated and transected. The anterior leaf of the broad ligament was entered, dissecting the vesicouterine peritoneum in a layering technique. The left uterine vessels were then skeletonized in usual fashion. They were coagulated in internal cervical os region. I then carried out the procedure in similar fashion on the right side, where the right infundibulopelvic ligament was coagulated and transected and again coagulation of the broad ligament until the right round ligament was reached, and it was coagulated and transected developing the vesicouterine peritoneum, bladder flap and again dissecting the bladder past the cervical-vaginal margin. The uterine vessels on the right side were also skeletonized and then coagulated and transected in the internal cervical os region. We distended the bladder intermittently during this process several times to ascertain its position and to help skeletonize the cervix prior to anterior colpotomy. I proceeded to create the posterior colpotomy starting at 6 to 9 and 6 to 3 o'clock and then completed the anterior colpotomy from 12 to 3 and 12 to 9 o'clock. The specimen was brought into the vaginal vault. The monopolar scissors were exchanged for a large Parvez needle bobtail driver. I then coagulated any areas of oozing on the vaginal cuff with bipolar fenestrated cautery. My janitorial assistant brought in a Stratafix suture, and then, I closed the vaginal cuff in double-layer closure starting from the right angle to the left angle back towards the midline. The excess suture and needle were trimmed and then brought out through the right upper quadrant janitorial assistant port. We irrigated the pelvis well, checked all the pedicle sites. They appeared to be hemostatic. Tisseel was placed over the pedicle sites and any areas that were raw in appearance. Once this had been accomplished, the robot was undocked. Trocar sleeves were removed, and then, a deep stitch of 0 Vicryl was placed in the fascial defect in the umbilical region in a abvues-ag-zhecc stitch fashion. Remainder of the trocar sites were closed with 4-0 Monocryl and Dermabond. The vaginal vault was checked with a sponge stick, and it was noted to be dry. The patient was awakened from anesthesia and transferred to recovery room in stable condition. Job ID: [id number]
[2019-11-24] MEDS ORDERED: Ketorolac Tromethamine 30 MG/ML VIAL IVP SCH (12:00)
[2019-11-24] MEDS ORDERED: PROPOFOL 200 MG/20 ML VIAL ONE (13:25)
[2019-11-24] MEDS ORDERED: Lidocaine 1% PF 5 ML VIAL ONE (13:25)
[2019-11-24] MEDS ORDERED: Ondansetron PF 4 MG/2 ML Vial ONE (13:25)
[2019-11-24] MEDS ORDERED: Rocuronium Bromide 10 MG/ML (10ML VIAL) ONE (13:25)
[2019-11-24] MEDS ORDERED: Dexamethasone 20 MG/5 ML VIAL ONE (13:25)
[2019-11-24] MEDS ORDERED: Glycopyrrolate 0.2 MG/ML 5 ML SYRINGE ONE (13:25)
[2019-11-24] MEDS ORDERED: PHENYLEPHRINE-NS 100 MCG/ML 10 ML SYRINGE ONE (13:25)
[2019-11-24 16:12] VITALS: BP 115/78; TEMP 98.2
[2019-11-25] MEDS ORDERED: Magnesium Oxide 400 MG TAB PO SCH (09:00)
== END 2019-11-24 16:15 | disposition home or self-care (01) ==
LOC: SDC 05:28 → 3SE 12:48 → SDC 16:15
PROVIDERS: ATTEND Obstetrics & Gynecology
PROC: 0UT94ZZ Resection of Uterus, Percutaneous Endoscopic Approach (ICD-10-PCS; principal; 2019-11-24)
PROC: 0UT74ZZ Resection of Bilateral Fallopian Tubes, Percutaneous Endoscopic Approach (ICD-10-PCS; principal; 2019-11-24)
PROC: 0UT24ZZ Resection of Bilateral Ovaries, Percutaneous Endoscopic Approach (ICD-10-PCS; principal; 2019-11-24)
DX: N80.0 Endometriosis of uterus (principal); N72 Inflammatory disease of cervix uteri; N83.02 Follicular cyst of left ovary; N83.01 Follicular cyst of right ovary; N73.6 Female pelvic peritoneal adhesions (postinfective); Z87.891 Personal history of nicotine dependence; Z80.0 Family history of malignant neoplasm of digestive organs; Z80.3 Family history of malignant neoplasm of breast; Z80.41 Family history of malignant neoplasm of ovary; Z80.49 Family history of malignant neoplasm of other genital organs; Z79.01 Long term (current) use of anticoagulants; Z79.899 Other long term (current) drug therapy; Z91.040 Latex allergy status; Z01.812 Encounter for preprocedural laboratory examination; Z20.828 Contact with and (suspected) exposure to other viral communicable diseases
CPT/HCPCS: 85025; 86850; 86900; 86901; 87635; 88307; J0690; J1100; J2175; J2270; J2405; J2704; J2710; J3010; Q9968; S0028; U0003

== ENCOUNTER 2019-12-22 19:39 | Emergency (ER) | payer BC ==
--- NOTE | 2019-12-22 20:54 | RAD ---
KAVEH CHEST: Date: 12/22/2019 HISTORY: Chest pain. FINDINGS: Lung martinez are clear. Heart size normal. Postop sternotomy changes noted. There is a prosthetic aort ic valve. No evidence of vascular congestion. IMPRESSION: No acute findings. POS: AGW
[2019-12-22 20:55] LABS: #Lymphocytes 0.9 thou/uL (1.20-3.40); #Monocytes 0.6 thou/uL (0.11-0.59); #Neutrophils 9.9 thou/uL (1.40-6.50); %Eosinophils 0.2 % (0.0-10.0); %Lymphocytes 8.1 % (21.0-51.0); %Monocytes 5.3 % (0.0-10.0); %Neutrophils 86.3 % (42.0-75.0); Hemoglobin 13.5 g/dL (12.0-16.0); Mean Corpuscular HGB CONC 32.7 g/dL (32.0-36.0); Mean Corpuscular Hemoglobin 29.1 pg (27.0-31.0); Mean Corpuscular Volume 88.9 fL (78.0-98.0); Platelet Count 219 thou/uL (130-400); RBC Distribution Width 12.5 % (11.5-14.5); Red Blood Cell (RBC) Count 4.63 mill/uL (4.20-5.40); White Blood Cell (WBC) Count 11.5 thou/uL (4.8-10.8)
[2019-12-22 21:01] LABS: INR-International Normal Ratio 3.4; PTT 46.2 sec (22.9-36.1); Prothrombin Time 35.3 sec (12.0-14.7)
[2019-12-22 21:18] LABS: ALT (SGPT) 18 U/L (8-55); AST (SGOT) 22 U/L (5-34); Albumin 4.1 g/dL (3.5-5.0); Alkaline Phosphatase 124 U/L (40-110); Anion Gap 14 mmol/L (10-20); BUN (Urea Nitrogen) 14 mg/dL (7.0-18.7); Bilirubin, Total 0.3 mg/dL (0.2-1.2); CK (CPK) 36 U/L (29-168); Calc. Creatinine Clearance 0 mL/min (70-130); Carbon Dioxide 21 mmol/L (22-29); Chloride 103 mmol/L (98-107); Estimated GFR-MDRD 62; Globulin 4.1 g/dL (2.4-3.5); Glucose 115 mg/dL (70-105); Lipase 26 U/L (8-78); Potassium 3.9 mmol/L (3.5-5.1); Protein, Total 8.2 g/dL (6.0-8.3); Sodium 134 mmol/L (136-145)
[2019-12-22] MEDS ORDERED: Fentanyl 100 MCG/2 ML VIAL ONE (22:08)
--- NOTE | 2019-12-27 17:53 | EKG ---
Test Reason : Blood Pressure : / mmHG Vent. Rate : 091 BPM Atrial Rate : 091 BPM P-R Int : 118 ms QRS Dur : 072 ms QT Int : 366 ms P-R-T Axes : 021 046 064 degrees QTc Int : 450 ms Normal sinus rhythm Normal ECG Confirmed by JOSUE RICH, AVANI ([id number]), commercial green building architect MARCO A LANGE ([id number]) on 12/27/2019 5:52:54 PM Referred By: Confirmed By:AVANI SALAS MD
== END 2019-12-22 22:15 | disposition home or self-care (01) ==
LOC: ERS 19:39
DX: R07.81 Pleurodynia (principal); Z87.891 Personal history of nicotine dependence; Z79.01 Long term (current) use of anticoagulants
CPT/HCPCS: 36415; 71045; 80053; 82550; 83690; 84484; 85025; 85610; 85730; 87040; 93005; 96374; J3010

== ENCOUNTER 2020-09-23 | Outpatient (CLI) | payer BC | END 2020-09-23 15:31 | disposition home or self-care (01) ==

== ENCOUNTER 2020-09-28 06:24 | Day surgery (SDC) | payer BC ==
[2020-09-24 11:40] VITALS: BMI 32.1
[2020-09-28] MEDS ORDERED: Fentanyl 100 MCG/2 ML VIAL ONE ×4 (06:43→09:32)
[2020-09-28] MEDS ORDERED: Midazolam HCl 2 mg/2 ml Vial ONE ×2 (06:43→07:13)
[2020-09-28] MEDS ORDERED: Acetaminophen 500 MG TAB ONE (07:13)
[2020-09-28] MEDS ORDERED: Dexamethasone 20 MG/5 ML VIAL ONE (07:28)
[2020-09-28] MEDS ORDERED: PROPOFOL 200 MG/20 ML VIAL ONE (07:28)
[2020-09-28] MEDS ORDERED: Ondansetron PF 4 MG/2 ML Vial ONE (07:28)
[2020-09-28] MEDS ORDERED: Lidocaine 1% PF 5 ML VIAL ONE (07:28)
[2020-09-28 07:36] LABS: PTT 33.3 sec (22.9-36.1); Prothrombin Time 13.6 sec (12.0-14.7)
[2020-09-28] MEDS ORDERED: EPINEPHrine 1 MG/ML AMP ONE (08:36)
[2020-09-28] MEDS ORDERED: Bupivacaine 0.25% HCL 30 ML VIAL ONE (08:36)
[2020-09-28] MEDS ORDERED: Ketorolac Tromethamine 30 MG/ML VIAL ONE (09:12)
[2020-09-28] MEDS ORDERED: Meperidine HCl/PF 25 MG/ML VIAL ONE (09:12)
[2020-09-28] MEDS ORDERED: HYDROcodone/Acetaminophen 5/325 mg Tablet ONE (10:14)
== END 2020-09-28 11:35 | disposition home or self-care (01) ==
LOC: SDC 06:24
PROVIDERS: ATTEND Orthopaedic Surgery
PROC: 0PSH04Z Reposition Right Radius with Internal Fixation Device, Open Approach (ICD-10-PCS; principal; 2020-09-28)
DX: S52.501A Unspecified fracture of the lower end of right radius, initial encounter for closed fracture (principal); Z79.01 Long term (current) use of anticoagulants; Z79.890 Hormone replacement therapy; Z79.899 Other long term (current) drug therapy; Z91.040 Latex allergy status; Z95.2 Presence of prosthetic heart valve; Z90.710 Acquired absence of both cervix and uterus; Z87.891 Personal history of nicotine dependence; W18.30XA Fall on same level, unspecified, initial encounter; Y93.51 Activity, roller skating (inline) and skateboarding
CPT/HCPCS: 76000; 85610; 85730; C1713; J0171; J0690; J1100; J1885; J2175; J2250; J2405; J2704; J3010; S0020

== ENCOUNTER 2023-01-05 09:54 | Emergency (ER) | payer BC ==
[2023-01-05] MEDS ORDERED: LORazepam 2 MG/ML SYR.(CARPUJECT) ONE (10:35)
[2023-01-05 10:57] LABS: #Monocytes 0.4 thou/uL (0.11-0.59); #Neutrophils 5.2 thou/uL (1.40-6.50); %Basophils 0.3 % (0.0-1.0); %Eosinophils 0.6 % (0.0-10.0); %Lymphocytes 12.7 % (21.0-51.0); %Monocytes 6.3 % (0.0-10.0); %Neutrophils 79.9 % (42.0-75.0); Hematocrit 39.9 % (36.0-47.0); Hemoglobin 13.5 g/dL (12.0-16.0); Mean Corpuscular HGB CONC 33.8 g/dL (32.0-36.0); Mean Corpuscular Hemoglobin 29.9 pg (27.0-31.0); Mean Corpuscular Volume 88.3 fl (78.0-98.0); Mean Platelet Volume 10.2 fL (7.4-10.4); Platelet Count 147 10x3/uL (130-400); RBC Distribution Width 12.9 % (11.5-14.5); Red Blood Cell (RBC) Count 4.52 mill/uL (4.20-5.40); White Blood Cell (WBC) Count 6.5 10x3/uL (4.8-10.8)
[2023-01-05 11:07] LABS: Bacteria/HPF None Seen HPF (None Seen); Bilirubin Negative (Negative); Blood, Urine Negative (Negative); CAUTI Indications for Culture Alt mental st,lethar; Clarity Clear (Clear); Glucose, Urine (Dipstick) Normal (Negative); Ketone, Urine Negative (Negative); Leukocyte Negative Leu/uL (Negative); Nitrite Negative (Negative); Protein, Urine (Dipstick) 30 mg/dL (Neg-Trace); RBC/HPF 0-3 HPF (0-3); Specific Gravity, Urine 1.037 (1.002-1.036); Urobilinogen Normal mg/dL (Less than 2); WBC/HPF 0-3 HPF (0-3)
[2023-01-05 11:13] LABS: Urine Culture Reflex No No
[2023-01-05 11:13] LABS: INR-International Normal Ratio 4.6; PTT 51.3 sec (22.9-36.1); Prothrombin Time 45.8 sec (12.0-14.7)
[2023-01-05 11:23] LABS: ALT (SGPT) 121 U/L (8-55); AST (SGOT) 88 U/L (5-34); Albumin 4.1 g/dL (3.5-5.0); Alkaline Phosphatase 96 U/L (40-110); Anion Gap 10 mmol/L (10-20); BUN (Urea Nitrogen) 9 mg/dL (7.0-18.7); Bilirubin, Total 0.5 mg/dL (0.2-1.2); Calc. Creatinine Clearance 0 mL/min (70-130); Calcium 8.6 mg/dL (7.8-10.44); Carbon Dioxide 22 mmol/L (22-29); Chloride 108 mmol/L (98-107); Estimated GFR 79; Globulin 3.2 g/dL (2.4-3.5); Glucose 95 mg/dL (70-105); Lipase 23 U/L (8-78); Magnesium 1.9 mg/dL (1.6-2.6); Potassium 4.1 mmol/L (3.5-5.1); Protein, Total 7.3 g/dL (6.0-8.3); Sodium 136 mmol/L (136-145)
[2023-01-05 11:25] LABS: Troponin I Less than 0.010 ng/mL (< 0.028)
[2023-01-05 11:32] LABS: BHCG - Serum Negative (NEGATIVE); Pregs Control Background? CLEAR/WHITE (CLR/WHITE); Pregs Control Bar Appear? YES (CONTROL BAR)
== END 2023-01-05 12:54 | disposition home or self-care (01) ==
LOC: ERS 09:54
DX: R55 Syncope and collapse (principal); H81.10 Benign paroxysmal vertigo, unspecified ear
CPT/HCPCS: 36415; 70450; 71045; 80053; 81001; 83690; 83735; 83880; 84443; 84484; 84703; 85025; 85610; 85730; 93005; 96361; 96374; J2060

== ENCOUNTER 2023-07-17 14:09 | Outpatient (CLI) | payer OTHER ==
[2023-07-17 15:52] LABS: Anion Gap 11 mmol/L (10-20); BUN (Urea Nitrogen) 8 mg/dL (7.0-18.7); Calc. Creatinine Clearance 0 mL/min (70-130); Calcium 9.1 mg/dL (7.8-10.44); Carbon Dioxide 25 mmol/L (22-29); Chloride 108 mmol/L (98-107); Estimated GFR 75; Glucose 98 mg/dL (70-105); Potassium 4.2 mmol/L (3.5-5.1); Sodium 140 mmol/L (136-145)
[2023-07-17 16:59] LABS: Hematocrit 38.7 % (34.9-44.5); Hemoglobin 12.9 g/dL (12.0-15.5); Mean Corpuscular HGB CONC 33.3 g/dL (32.0-36.0); Mean Corpuscular Hemoglobin 29.1 pg (27.0-33.0); Mean Corpuscular Volume 87.4 fL (81.6-98.3); Mean Platelet Volume 11.1 fL (7.4-10.4); Platelet Count 176 10x3/uL (150-450); RBC Distribution Width 12.7 % (11.5-14.5); Red Blood Cell (RBC) Count 4.43 10x6/uL (3.90-5.03); White Blood Cell (WBC) Count 5.6 10x3/uL (3.5-10.5)
== END 2023-07-17 14:10 | disposition home or self-care (01) ==
LOC: LABBT 14:09
PROVIDERS: ATTEND Otolaryngology Plastic Surgery within the Head & Neck
DX: Z01.812 Encounter for preprocedural laboratory examination (principal); J34.2 Deviated nasal septum; J34.3 Hypertrophy of nasal turbinates; J32.0 Chronic maxillary sinusitis; J32.1 Chronic frontal sinusitis; J32.2 Chronic ethmoidal sinusitis; J32.3 Chronic sphenoidal sinusitis
CPT/HCPCS: 80048; 85027

== ENCOUNTER 2023-07-18 08:21 | Day surgery (SDC) | payer OTHER ==
[2023-07-17 15:25] VITALS: BMI 33.4
[2023-07-18] MEDS ORDERED: Oxymetazoline HCl 0.05% (30 ML BOT) ONE ×2 (10:04→10:45)
[2023-07-18] MEDS ORDERED: fentaNYL 50 mcg/mL 1 mL Vial ONE ×2 (10:41→12:22)
[2023-07-18] MEDS ORDERED: Lidocaine 2% PF 5 ML VIAL ONE (10:41)
[2023-07-18] MEDS ORDERED: PROPOFOL 20 ML ONE (10:41)
[2023-07-18] MEDS ORDERED: EPINEPHrine 1 MG/ML VIAL ONE (10:45)
[2023-07-18] MEDS ORDERED: Bacitracin Zinc Ointment 30 gm TUBE ONE (10:45)
[2023-07-18] MEDS ORDERED: Lidocaine 1% (PF) 30 ML VIAL ONE (10:45)
[2023-07-18] MEDS ORDERED: Famotidine/PF 20 mg/2ml Vial ONE (10:46)
[2023-07-18] MEDS ORDERED: Ondansetron PF 4 MG/2 ML Vial ONE (11:27)
[2023-07-18] MEDS ORDERED: Dexamethasone 4 mg/ml Vial ONE (11:27)
[2023-07-18] MEDS ORDERED: Ketorolac Tromethamine 30 MG (1 mL) VIAL ONE (12:22)
[2023-07-18] MEDS ORDERED: HYDROcodone/Acetaminophen 5/325 mg Tablet ONE (13:18)
== END 2023-07-18 14:27 | disposition home or self-care (01) ==
LOC: SDC 08:21
PROVIDERS: ATTEND Otolaryngology Plastic Surgery within the Head & Neck
PROC: 09TR8ZZ Resection of Left Maxillary Sinus, Via Natural or Artificial Opening Endoscopic (ICD-10-PCS; principal; 2023-07-18)
PROC: 09TT8ZZ Resection of Left Frontal Sinus, Via Natural or Artificial Opening Endoscopic (ICD-10-PCS; principal; 2023-07-18)
PROC: 09TQ8ZZ Resection of Right Maxillary Sinus, Via Natural or Artificial Opening Endoscopic (ICD-10-PCS; principal; 2023-07-18)
PROC: 09TL8ZZ Resection of Nasal Turbinate, Via Natural or Artificial Opening Endoscopic (ICD-10-PCS; principal; 2023-07-18)
PROC: 09TS8ZZ Resection of Right Frontal Sinus, Via Natural or Artificial Opening Endoscopic (ICD-10-PCS; principal; 2023-07-18)
PROC: 09TU8ZZ Resection of Right Ethmoid Sinus, Via Natural or Artificial Opening Endoscopic (ICD-10-PCS; principal; 2023-07-18)
PROC: 09TV8ZZ Resection of Left Ethmoid Sinus, Via Natural or Artificial Opening Endoscopic (ICD-10-PCS; principal; 2023-07-18)
DX: J34.2 Deviated nasal septum (principal); J32.4 Chronic pansinusitis; J34.3 Hypertrophy of nasal turbinates; E78.5 Hyperlipidemia, unspecified; K21.9 Gastro-esophageal reflux disease without esophagitis; Z98.890 Other specified postprocedural states; Z90.710 Acquired absence of both cervix and uterus; Z79.899 Other long term (current) drug therapy; Z95.2 Presence of prosthetic heart valve
CPT/HCPCS: J0171; J1100; J1885; J2001; J2405; J2704; J3010; S0028

== ENCOUNTER 2024-10-29 07:05 | Day surgery (SDC) | payer OTHER ==
[2024-10-29 07:48] LABS: #Basophils Less than 0.03 10x3/uL (0.0-0.2); #Eosinophils 0.04 10x3/uL (0.0-0.7); #Monocytes 0.32 10x3/uL (0.11-0.59); #Neutrophils 2.25 10x3/uL (1.40-6.50); %Basophils 0.3 % (0.0-1.0); %Eosinophils 1.1 % (0.0-10.0); %Lymphocytes 29.1 % (21.0-51.0); %Monocytes 8.6 % (0.0-10.0); %Neutrophils 60.6 % (42.0-75.0); Hematocrit 41.1 % (36.0-47.0); Hemoglobin 13.3 g/dL (12.0-16.0); Mean Corpuscular Hemoglobin 28.8 pg (27.0-31.0); Mean Corpuscular Volume 89.0 fL (78.0-98.0); Platelet Count 161 10x3/uL (130-400); Red Blood Cell (RBC) Count 4.62 mill/uL (4.20-5.40); White Blood Cell (WBC) Count 3.71 10x3/uL (4.8-10.8)
[2024-10-29 08:03] LABS: INR-International Normal Ratio 1.1; Prothrombin Time 13.8 sec (12.0-14.7)
[2024-10-29 08:04] LABS: PTT 33.9 sec (22.9-36.1)
[2024-10-29] MEDS ORDERED: Lidocaine 1% w/Epinephrine 1:100K 20 ML VIAL ONE (08:27)
[2024-10-29] MEDS ORDERED: Sodium Bicarbonate 2.5 MEQ/5 ML SDV ONE (08:27)
== END 2024-10-29 13:50 | disposition home or self-care (01) ==
LOC: ULT 07:05
PROVIDERS: ATTEND Student in an Organized Health Care Education/Training Program
PROC: 0FB13ZX Excision of Right Lobe Liver, Percutaneous Approach, Diagnostic (ICD-10-PCS; principal; 2024-10-29)
DX: K83.09 Other cholangitis (principal); K74.00 Hepatic fibrosis, unspecified; K76.0 Fatty (change of) liver, not elsewhere classified; E88.810 Metabolic syndrome; E78.00 Pure hypercholesterolemia, unspecified; Z79.899 Other long term (current) drug therapy; Z87.891 Personal history of nicotine dependence; Z91.040 Latex allergy status
CPT/HCPCS: 36000; 47000; 76942; 85025; 85610; 85730; 88307; 88313; 99152; 99153; J2250

== ENCOUNTER 2024-11-03 16:42 | Emergency (ER) | payer OTHER ==
[~2024-11-03 16:42] MED LIST: Iopamidol-370 76% 500 ML MDV (1 ML CHARGE) ONE
[2024-11-03 18:23] LABS: #Basophils Less than 0.03 10x3/uL (0.0-0.2); #Eosinophils Less than 0.03 10x3/uL (0.0-0.7); #Monocytes 0.34 10x3/uL (0.11-0.59); #Neutrophils 3.91 10x3/uL (1.40-6.50); %Basophils 0.4 % (0.0-1.0); %Eosinophils 0.4 % (0.0-10.0); %Lymphocytes 19.2 % (21.0-51.0); %Monocytes 6.4 % (0.0-10.0); %Neutrophils 73.4 % (42.0-75.0); Hematocrit 39.1 % (36.0-47.0); Hemoglobin 12.7 g/dL (12.0-16.0); Mean Corpuscular Hemoglobin 28.2 pg (27.0-31.0); Mean Corpuscular Volume 86.9 fL (78.0-98.0); Platelet Count 164 10x3/uL (130-400); Red Blood Cell (RBC) Count 4.50 mill/uL (4.20-5.40); White Blood Cell (WBC) Count 5.32 10x3/uL (4.8-10.8)
[2024-11-03 18:38] LABS: INR-International Normal Ratio 1.9; PTT 47.3 sec (22.9-36.1); Prothrombin Time 21.5 sec (12.0-14.7)
[2024-11-03 18:41] LABS: Lipase 23.0 U/L (8-78)
[2024-11-03 18:42] LABS: ALT (SGPT) 41 U/L (Less than 34); AST (SGOT) 35 U/L (11-34); Albumin 3.8 g/dL (3.1-4.5); Alkaline Phosphatase 98 U/L (40-110); Anion Gap 15 mmol/L (10-20); BUN (Urea Nitrogen) 10 mg/dL (7.0-18.7); Bilirubin, Total 0.2 mg/dL (0.3-1.2); Calc. Creatinine Clearance 0 mL/min (70-130); Calcium 8.8 mg/dL (7.8-10.44); Carbon Dioxide 22 mmol/L (22-29); Chloride 108 mmol/L (98-107); Globulin 3.5 g/dL (2.4-3.5); Glucose 88 mg/dL (70-105); Potassium 4.1 mmol/L (3.5-5.1); Sodium 141 mmol/L (136-145)
[2024-11-03 18:43] LABS: Bacteria/HPF None Seen HPF (None Seen); CAUTI Indications for Culture Dysuria,urgency,freq; Glucose, Urine (Dipstick) Normal (Negative); Leukocyte Negative Leu/uL (Negative); Protein, Urine (Dipstick) Negative (Neg-Trace); RBC/HPF None Seen HPF (0-3); Specific Gravity, Urine 1.009 (1.002-1.036); WBC/HPF None Seen HPF (0-3)
[2024-11-03 18:43] LABS: CRP, High Sensitivity at Bryan 2.08 mg/dL (< or = 0.5)
[2024-11-03 19:08] LABS: Urine Culture Reflex No No
[2024-11-03] MEDS ORDERED: Ondansetron PF 4 MG/2 ML Vial ONE (21:39)
== END 2024-11-03 23:36 | disposition home or self-care (01) ==
LOC: ERS 16:42
DX: M54.50 Low back pain, unspecified (principal); Z79.01 Long term (current) use of anticoagulants
CPT/HCPCS: 72146; 72148; 74177; 80053; 81001; 83690; 85025; 85610; 85730; 86141